=== PATIENT | male | born 1950 | race Caucasian/White ===

== ENCOUNTER → 2018-09-29 | Outpatient (CLI) | payer MEDICARE ==
[2018-09-29 12:10] LABS: HCT 45.3 % (39.0-53.0); HGB 13.9 gm/dL (13.0-17.5); Hypochromasia Marked; MCHC 30.7 g/dL (31.0-37.0); MCV 84.6 fL (80.0-100.0); Mean Platelet Volume 7.4; Platelet Count 281 k/uL (150-450); RBC 5.35 m/uL (4.30-5.90); RDW 15.8 % (11.5-15.5); WBC 9.5 k/uL (3.8-10.6)
[2018-09-29 12:26] LABS: Potassium 3.8 mmol/L (3.5-5.1)
== END ==
LOC: LABPAT 10:59
PROVIDERS: ATTEND Internal Medicine Interventional Cardiology
DX: Z01.812 Encounter for preprocedural laboratory examination (principal); I48.1 Persistent atrial fibrillation; I10 Essential (primary) hypertension; E78.2 Mixed hyperlipidemia; R94.39 Abnormal result of other cardiovascular function study
CPT/HCPCS: 80051; 82565; 84520; 85027

== ENCOUNTER 2018-10-09 09:00 | Day surgery (SDC) | payer BC, MEDICARE ==
[2018-09-28 16:09] VITALS: BMI 35.2
[~2018-10-09 09:00] MED LIST: ALPRAZolam 0.25 MG TAB PO PRN; ALPRAZolam 0.5 MG TAB PO PRN; ASPIRIN 325 MG TAB PO STA; ATORVASTATIN 80 MG TAB PO STA; NITROGLYCERIN SL TABS 0.4 MG TAB SUBLINGUAL PRN; SODIUM CHLORIDE 0.9% 1,000 ML in EMPTY BAG 1 BAG IV ONE
[2018-10-09 09:58] VITALS: TEMP 97.5
[2018-10-09] MEDS ORDERED: SODIUM CHLORIDE 0.9% 1,000 ML IV ONE (10:00)
[2018-10-09] MEDS ORDERED: MIDAZOLAM 2 MG/2 ML VIAL IVP ONE ×2 (10:56)
[2018-10-09] MEDS ORDERED: LIDOCAINE 1% INJ 10MG/ML (20 ML MDV) SQ ONE (10:59)
[2018-10-09] MEDS ORDERED: VERAPAMIL SYRINGE (5 MG/10 ML) IV ONE (11:00)
[2018-10-09] MEDS ORDERED: HEPARIN SODIUM 1,000 UN/ML (10ML VL) IV ONE (11:04)
[2018-10-09] MEDS ORDERED: IOPAMIDOL-370 100ML BTL INJ ONE ×2 (11:22→11:33)
[2018-10-09 14:14] VITALS: PULSE 76
--- NOTE | 2018-10-09 16:43 | CC ---
CARDIAC CATHETERIZATION REPORT DATE OF SERVICE: 10/09/2018. PROCEDURE: Left heart catheterization, coronary angiography. PERFORMED BY: Dr. Mateus Quezada. Moderate conscious sedation time was 42 minutes. CLINICAL INFORMATION: Mr. Blaze Wright is a 68-year-old gentleman with a known history of hypertension, chronic persistent atrial fibrillation and hypertension who also has underlying COPD. He has been on rate control and anticoagulation with a preserved LV function. Because of symptoms of exertional chest tightness and pressure, he had a stress test which revealed inferolateral reversible defect and was therefore advised coronary angiography. Risks, benefits, options, rationale were explained. PROCEDURE NOTE: Under local anesthesia and strict aseptic precautions, a 6-Nepali introducer was placed in the right radial artery. Using a 3.5 left and a 4.0 right Ari catheter, I performed coronary angiography, and a pigtail catheter was used to check LV pressures. LV gram was not performed. The patient received 3000 units of heparin. The sheath was taken out and TR band applied as per protocol with good saturation in the fingers of the right hand. CARDIAC CATHETERIZATION FINDINGS: The left ventricular end-diastolic pressure was about 15 mmHg without any gradient across the aortic valve. CORONARY ANGIOGRAPHY FINDINGS: RIGHT CORONARY ARTERY: Technically a nondominant vessel, heavily calcified in the proximal and middle one third, has tortuous areas of disease of anywhere from 40% to 45% in the proximal and distal portion. It gives off really a PDA branch, and not much of a PLV branch is noted. This is a nondominant RCA, but it is heavily calcified, has multiple areas of 40% to 45% narrowing, including a PDA branch or the distal portion of the RCA which then bifurcates into 2 branches, has an eccentric about 45% narrowing. LEFT MAIN CORONARY ARTERY: This is a long disease-free vessel that has mild distal narrowing of about maybe 20%. Ostium and mid portion of left main are free of significant disease and it bifurcates into LAD and circumflex. Left main itself has no significant lesion. LEFT ANTERIOR DESCENDING CORONARY ARTERY: Fair-caliber vessel, gives off a diagonal branch proximally, smaller septal branches, moderate to heavy calcification in the proximal one third. Other than that, no critical stenosis. He has about a 30% to 40% narrowing in the LAD and diagonal, but the proximal one third of LAD is heavily calcified. LEFT POSTERIOR CIRCUMFLEX CORONARY ARTERY: Technically a dominant vessel that gives off a very proximal high obtuse marginal and has minor irregularities. Then it runs in the AV groove and gives off 2 distal posterolateral and PDA branches. The PDA branch of circumflex has an eccentric lesion of about 90% located in the mid portion after it bifurcates. Very tortuous, moderate to heavily calcified vessel in the distal portion. The circumflex is also a technically difficult vessel to perform intervention on. Caliber of the vessel appears to be smaller distally, but at least a 2.25 caliber. Circumflex therefore has a critical 90% lesion in the distal PDA branch after bifurcation of a dominant circumflex. LEFT VENTRICULOGRAM: This was not performed. FINAL IMPRESSION: This patient has heavily calcified vessels, a left-dominant system with a PDA branch of circumflex having a 90% lesion. RCA has a 40% to 45% lesion in multiple areas, including the distal portion. LAD has no critical lesion. All vessels are heavily calcified. LV gram was not performed. There was no gradient across the aortic valve. Filling pressures were mildly elevated. RECOMMENDATION: I am recommending elective PCI of PDA branch of circumflex to be performed from right femoral approach. Discussed the findings with the patient, his and children. Patient will be discharged later on today. MMODL / IJN: [id number] /
[2018-10-09 16:46] VITALS: BP 129/78; RESP 18
== END 2018-10-09 16:35 | disposition home or self-care (01) ==
LOC: CATHCVL 09:00
PROVIDERS: ATTEND Internal Medicine Interventional Cardiology
DX: I25.110 Atherosclerotic heart disease of native coronary artery with unstable angina pectoris (principal); R94.39 Abnormal result of other cardiovascular function study; I48.2 Chronic atrial fibrillation; I48.1 Persistent atrial fibrillation; I10 Essential (primary) hypertension; E78.00 Pure hypercholesterolemia, unspecified; J44.9 Chronic obstructive pulmonary disease, unspecified; J45.40 Moderate persistent asthma, uncomplicated; Z79.01 Long term (current) use of anticoagulants; Z79.899 Other long term (current) drug therapy; Z72.0 Tobacco use
CPT/HCPCS: 93458; C1769 ×2; C1894; J2250; J2001; J1644; Q9967

== ENCOUNTER → 2018-10-24 | Outpatient (CLI) | payer MEDICARE ==
[2018-10-24 11:54] LABS: HCT 43.1 % (39.0-53.0); HGB 12.6 gm/dL (13.0-17.5); Hypochromasia Marked; MCH 24.6 pg (25.0-35.0); MCHC 29.3 g/dL (31.0-37.0); Mean Platelet Volume 6.1; Platelet Count 286 k/uL (150-450); RBC 5.13 m/uL (4.30-5.90); RDW 15.9 % (11.5-15.5); WBC 10.4 k/uL (3.8-10.6)
== END | disposition home or self-care (01) ==
LOC: LABPAT 10:24
PROVIDERS: ATTEND Internal Medicine Interventional Cardiology
DX: Z01.812 Encounter for preprocedural laboratory examination (principal); I10 Essential (primary) hypertension; I25.10 Atherosclerotic heart disease of native coronary artery without angina pectoris
CPT/HCPCS: 36415; 80051; 82565; 84520; 85027

== ENCOUNTER 2018-11-03 05:55 | Day surgery (SDC) | payer MEDICARE ==
[2018-11-03] MEDS ORDERED: ALPRAZolam 0.25 MG TAB PO PRN (06:10)
[2018-11-03] MEDS ORDERED: ATORVASTATIN 80 MG TAB PO STA (06:10)
[2018-11-03] MEDS ORDERED: NITROGLYCERIN SL TABS 0.4 MG TAB SUBLINGUAL PRN ×2 (06:10→08:34)
[2018-11-03] MEDS ORDERED: SODIUM CHLORIDE 0.9% 1,000 ML in EMPTY BAG 1 BAG IV ONE (06:10)
[2018-11-03] MEDS ORDERED: ASPIRIN 325 MG TAB PO STA (06:10)
[2018-11-03] MEDS ORDERED: ALPRAZolam 0.5 MG TAB PO PRN (06:10)
[2018-11-03 07:03] LABS: Anisocytosis Slight; Basophils % (A) 0 %; Eosinophils # (A) 0.6 k/uL (0-0.7); Eosinophils % (A) 4 %; HCT 40.4 % (39.0-53.0); HGB 12.5 gm/dL (13.0-17.5); Hypochromasia Moderate; Lymphocytes % (A) 6 %; MCH 24.9 pg (25.0-35.0); MCHC 30.8 g/dL (31.0-37.0); MCV 80.7 fL (80.0-100.0); Mean Platelet Volume 7.1; Monocytes # (A) 0.7 k/uL (0-1.0); Monocytes % (A) 5 %; Neutrophils # (A) 13.4 k/uL (1.3-7.7); Neutrophils % (A) 84 %; Platelet Count 257 k/uL (150-450); RBC 5.01 m/uL (4.30-5.90); RDW 16.6 % (11.5-15.5); WBC 15.9 k/uL (3.8-10.6)
[2018-11-03 07:10] LABS: Anion Gap 8 mmol/L; Blood Urea Nitrogen 16 mg/dL (9-20); Calcium 9.8 mg/dL (8.4-10.2); Carbon Dioxide 28 mmol/L (22-30); Chloride 103 mmol/L (98-107); Glucose 121 mg/dL (74-99); Sodium 139 mmol/L (137-145)
[2018-11-03] MEDS ORDERED: LIDOCAINE 1% INJ 10MG/ML (20 ML MDV) ONE (07:10)
[2018-11-03] MEDS: MIDAZOLAM 2 MG/2 ML VIAL IV ONE ×2 (07:32→07:35)
[2018-11-03] MEDS ORDERED: LIDOCAINE 1% INJ 10MG/ML (20 ML MDV) SQ ONE (07:34)
[2018-11-03] MEDS ORDERED: BIVALIRUDIN BOLUS 250 MG/50 ML IV ONE (07:45)
[2018-11-03] MEDS ORDERED: BIVALIRUDIN 250 MG in SODIUM CHLORIDE 0.9% 50 ML IV ONE (07:46)
[2018-11-03] MEDS: NITROGLYCERIN 1000MCG/10ML SYRINGE INTRACORON ONE ×2 (08:13→08:18)
[2018-11-03] MEDS ORDERED: IOPAMIDOL-370 125ML BTL INJ ONE ×2 (08:17→08:37)
[2018-11-03] MEDS ORDERED: CLOPIDOGREL 75 MG TAB ONE (08:20)
[2018-11-03] MEDS ORDERED: CLOPIDOGREL 75 MG TAB PO ONE (08:27)
[2018-11-03] MEDS ORDERED: RX INFO: IV CONTRAST WAS GIVEN 1 EACH MISC MISCELLANE PRN (08:34)
[2018-11-03] MEDS ORDERED: MAG HYDROX/AL HYDROX/SIMETH 30 ML CUP PO PRN (08:34)
[2018-11-03] MEDS ORDERED: ZOLPIDEM 5 MG TAB PO PRN (08:34)
[2018-11-03] MEDS ORDERED: ATROPINE SULFATE 0.1 MG/ML 10ML SYRINGE IV PRN (08:34)
--- NOTE | 2018-11-03 09:51 | PTCA ---
PERCUTANEOUSTRANS CORORONARY ANGIOGRAPHY DATE OF SERVICE: 11/03/2018 PROCEDURE: PTCA and stenting of second obtuse marginal branch of circumflex which is a very distal calcified lesion. PERFORMED BY: Dr. Mateus Quezada Moderate conscious sedation time was 50 minutes. The patient was administered a combination of Versed and fentanyl. His oxygen saturation, hemodynamics, and EKG were monitored closely. CLINICAL INFORMATION: Mr. Blaze Wright is a 68-year-old gentleman with chronic atrial fibrillation, hypertension, hyperlipidemia, and calcified coronary arteries. He underwent a cardiac cath a week or 2 ago which revealed that he had a moderate calcified disease in the proximal RCA with mild disease in the mid distal RCA which was heavily calcified, dominant vessel. Circumflex was a codominant vessel and the second obtuse marginal had a heavily calcified tortuous eccentric 95% lesion. LAD had moderate noncritical disease. He was advised intervention of the circumflex marginal after due discussion regarding risks, benefits, and options. The complex nature as well as the calcified status of the vessel were explained to the patient and family. PROCEDURE NOTE: Under local anesthesia and strict aseptic precautions, a 6-Swiss introducer was placed in the right femoral artery. I used a Voda 3.5 guide catheter to cannulate the left coronary artery. I used a run-through wire to cross the lesion. Wire was kept distally. I tried to advance a 2.25 caliber NC Trek balloon, but I had difficulty because of the calcification and tortuosity. I then used a 1.5 caliber 12 mm Mini Trek balloon with this I pre-dilated the lesion. After 2 inflations in the lesion and proximal to it, I advanced a 8 mm long 2.0 caliber Attila stent and deployed and deployed this at the site of the lesion at 15 atmospheres. A good angiographic result was achieved, but just proximal to it there was another area of narrowing. This was addressed with a 12 mm attila stent of 2.0 caliber and this was inflated up to 15 atmospheres. Patient did not have chest discomfort or EKG changes. Excellent angiographic result was achieved with remarkably improvement in angiographic appearance and flow without complication. The sheath was sutured. He received Angiomax bolus and infusion. Patient was on Xarelto for chronic atrial fibrillation. He received 600 mg of Plavix. I will place him on Xarelto 10 mg daily, Plavix 75 mg daily and aspirin 81 mg daily, and he will be discharged tomorrow if he remains stable. Results were discussed with the patient and family. I expect the patient to be discharged tomorrow if he remains stable. VIKTORIYA / MERCEDEZ: [id number] /
[2018-11-03] MEDS ORDERED: HYDROmorphone 0.5 MG/0.5 ML SYRINGE IVP STA (14:00)
[2018-11-03] MEDS: SODIUM CHLORIDE 0.9% 1,000 ML IV SCH ×2 (14:20→21:22)
[2018-11-03 18:39] VITALS: BMI 32.0
[2018-11-03] MEDS: LOSARTAN-HCTZ 50-12.5 MG 1 EACH TAB PO SCH (18:42)
[2018-11-03] MEDS: METOPROLOL TARTRATE 50 MG TAB PO SCH (18:42)
[2018-11-03] MEDS: IPRATROPIUM-ALBUTEROL 3 ML NEB INHALATION SCH ×4 (18:42→21:20)
[2018-11-03] MEDS ORDERED: MORPHINE SULFATE 2 MG/ML SYRINGE IVP PRN (19:14)
[2018-11-03] MEDS: BUDESONIDE 0.5 MG/2 ML NEBU INHALATION SCH ×2 (19:58→21:20)
[2018-11-03] MEDS ORDERED: RIVAROXABAN 10 MG TAB PO SCH (21:00)
[2018-11-03] MEDS ORDERED: IPRATROPIUM-ALBUTEROL 3 ML NEB INHALATION PRN (21:38)
[2018-11-03 22:49] VITALS: RESP 18; TEMP 98.4
[2018-11-04] MEDS: CLOPIDOGREL 75 MG TAB PO SCH ×2 (06:40→09:56)
[2018-11-04] MEDS: IPRATROPIUM-ALBUTEROL 3 ML NEB INHALATION SCH (07:57)
[2018-11-04] MEDS: BUDESONIDE 0.5 MG/2 ML NEBU INHALATION SCH (07:57)
[2018-11-04 08:27] LABS: Anisocytosis Slight; Basophils % (A) 0 %; Eosinophils # (A) 0.2 k/uL (0-0.7); Eosinophils % (A) 2 %; HCT 41.2 % (39.0-53.0); HGB 12.4 gm/dL (13.0-17.5); Hypochromasia Marked; Lymphocytes # (A) 0.8 k/uL (1.0-4.8); Lymphocytes % (A) 8 %; MCH 24.8 pg (25.0-35.0); MCHC 30.2 g/dL (31.0-37.0); Mean Platelet Volume 6.9; Monocytes # (A) 0.5 k/uL (0-1.0); Monocytes % (A) 5 %; Neutrophils # (A) 8.1 k/uL (1.3-7.7); Neutrophils % (A) 83 %; Platelet Count 247 k/uL (150-450); RBC 5.03 m/uL (4.30-5.90); RDW 16.6 % (11.5-15.5); WBC 9.8 k/uL (3.8-10.6)
[2018-11-04 08:32] LABS: Calcium 9.4 mg/dL (8.4-10.2)
[2018-11-04] MEDS ORDERED: MONTELUKAST 10 MG TAB PO SCH (09:00)
[2018-11-04] MEDS ORDERED: ATORVASTATIN 80 MG TAB PO SCH (09:00)
[2018-11-04] MEDS ORDERED: ASPIRIN 81 MG PO SCH (09:00)
[2018-11-04] MEDS ORDERED: hydrALAZINE HCL 50 MG TAB PO SCH (09:00)
[2018-11-04] MEDS: LOSARTAN-HCTZ 50-12.5 MG 1 EACH TAB PO SCH (09:53)
[2018-11-04] MEDS: METOPROLOL TARTRATE 50 MG TAB PO SCH (09:56)
[2018-11-04 10:01] VITALS: BP 126/79; PULSE 89
--- NOTE | 2018-11-04 12:37 | PN ---
PROGRESS NOTE Mr. Wright is a 68-year-old male who was admitted yesterday, underwent coronary angiography and stenting by Dr. Mateus Quezada of his obtuse marginal branch left circumflex. He is doing well this morning. He has a history of chronic persistent atrial fibrillation. He is ambulating without difficulty. Denying any chest pain. No dizziness. No palpitation. He denies any nausea. He continues to be at this time on aspirin 81 mg daily, Lipitor 80 mg daily, Plavix 75 mg daily, hydralazine 50 mg daily, losartan HCT 100-25 mg daily, metoprolol tartrate 100 mg daily, Singulair 10 mg daily, Xarelto 10 mg daily. PHYSICAL EXAMINATION: Blood pressure 126/70 with a heart rate in the 80s. LUNGS: Clear heart, irregularly irregular, S1, S2. No S3. No rub. ABDOMEN: Soft, nontender. Right groin no hematoma. LAB DATA: Revealed BUN and creatinine 17 and 1.02. IMPRESSION: 1. Status post stenting of the left circumflex. 2. Hypertension. 3. Hyperlipidemia. 4. Atrial fibrillation. RECOMMENDATION: Patient should be able to be discharged home today and follow as an outpatient with Dr. Mateus Quezada. MMODL / IJN: [id number] /
== END 2018-11-04 12:17 | disposition home or self-care (01) ==
LOC: CATHCVL 05:55 → 3SCARD 08:22 → CATHCVL 11-04 12:17
PROVIDERS: ATTEND Internal Medicine Interventional Cardiology
DX: I25.10 Atherosclerotic heart disease of native coronary artery without angina pectoris (principal); I48.2 Chronic atrial fibrillation; I10 Essential (primary) hypertension; J44.9 Chronic obstructive pulmonary disease, unspecified; J45.40 Moderate persistent asthma, uncomplicated; E78.00 Pure hypercholesterolemia, unspecified; E78.5 Hyperlipidemia, unspecified; Z72.0 Tobacco use; Z79.01 Long term (current) use of anticoagulants; Z79.899 Other long term (current) drug therapy; Z79.82 Long term (current) use of aspirin; Z79.02 Long term (current) use of antithrombotics/antiplatelets
CPT/HCPCS: 94640 ×3; 80048 ×2; 85025 ×2; C9600; C1887; C1725 ×2; C1769 ×4; C1894; C1874; J2250; J2001; J2270; J0583; J1170; Q9967

== ENCOUNTER 2019-12-04 15:05 | Inpatient (IN) | payer MEDICARE ==
[2019-12-04] MEDS ORDERED: ONDANSETRON 4 MG/2 ML VIAL IVP PRN (16:56)
[2019-12-04] MEDS ORDERED: NALOXONE 0.4 MG/ML 1 ML VIAL IV PRN (16:56)
--- NOTE | 2019-12-04 17:00 | P.HPADDEND ---
H&P Addendum H&P Addendum Date: 12/04/19 Please refer to H&P dictated through separate bariatric account 1 hour ago.
[2019-12-04 18:09] LABS: Anisocytosis Slight; Basophils % (A) 0 %; Eosinophils % (A) 0 %; HCT 28.5 % (39.0-53.0); HGB 7.3 gm/dL (13.0-17.5); Hypochromasia Marked; Lymphocytes # (A) 0.8 k/uL (1.0-4.8); Lymphocytes % (A) 7 %; MCHC 25.6 g/dL (31.0-37.0); MCV 66.3 fL (80.0-100.0); Mean Platelet Volume 7.2; Microcytosis Marked; Monocytes # (A) 0.3 k/uL (0-1.0); Monocytes % (A) 3 %; Neutrophils # (A) 10.2 k/uL (1.3-7.7); Neutrophils % (A) 89 %; Platelet Count 343 k/uL (150-450); Poikilocytosis Slight; WBC 11.4 k/uL (3.8-10.6)
[2019-12-04] MEDS: HYDROmorphone 0.5 MG/0.5 ML SYRINGE IVP PRN (18:41)
[2019-12-04 18:42] LABS: ALT 14 U/L (4-49); AST 28 U/L (17-59); African American GFR (CKD) >90 (>60 ml/min/1.73 sqM); Albumin 3.2 g/dL (3.5-5.0); Alkaline Phosphatase 78 U/L (38-126); Anion Gap 10 mmol/L; Blood Urea Nitrogen 18 mg/dL (9-20); Calcium 8.7 mg/dL (8.4-10.2); Carbon Dioxide 29 mmol/L (22-30); Chloride 95 mmol/L (98-107); Glucose 99 mg/dL (74-99); Non-African American GFR(CKD) 78 (>60 ml/min/1.73 sqM); Potassium 3.2 mmol/L (3.5-5.1); Sodium 134 mmol/L (137-145); Total Bilirubin 1.2 mg/dL (0.2-1.3); Total Protein 6.3 g/dL (6.3-8.2)
[2019-12-04] MEDS: D5-0.45% NACL WITH KCL 20MEQ/L 1,000 ML IV SCH (18:43)
--- NOTE | 2019-12-04 19:02 | XR ---
EXAMINATION TYPE: XR chest 2V DATE OF EXAM: 12/04/2019 COMPARISON: 03/12/2013 HISTORY: Chest congestion TECHNIQUE: FINDINGS: There is a 4 cm area of pleural thickening and infiltrate at the left lung apex. There is s ome patchy 5 cm area of infiltrate lateral left lung base. There is some diffuse infiltrate right low er lobe. There is hiatal hernia. There is no heart failure. There is slight blunting right costophren ic angle. Heart appears shifted slightly to the right side. There is some 3.5 cm poorly marginated in filtrate lateral to the right pulmonary hilum. IMPRESSION: Multiple areas of pulmonary infiltrate. Left upper lobe density at the apex unchanged and consistent with pleural and pulmonary scarring. The other infiltrates appear new compared to old exa m and consistent with inflammatory disease. There is also some atelectasis and volume loss left lower lobe with slight shift of the heart to the right side. No heart failure.
[2019-12-05] MEDS: D5-0.45% NACL WITH KCL 20MEQ/L 1,000 ML IV SCH ×2 (01:33→09:09)
[2019-12-05] MEDS: HEPARIN SODIUM,PORCINE 5,000 UNIT/ML 1 ML VIAL SQ SCH ×4 (01:33→23:38)
[2019-12-05 07:58] LABS: Magnesium 1.9 mg/dL (1.6-2.3); Phosphorus 3.4 mg/dL (2.5-4.5)
[2019-12-05] MEDS: ALBUTEROL NEBULIZED 2.5 MG/3 ML INHALATION SCH ×2 (08:20→08:43)
[2019-12-05] MEDS ORDERED: IPRATROPIUM-ALBUTEROL 3 ML NEB INHALATION PRN (08:36)
[2019-12-05] MEDS: BUDESONIDE 0.5 MG/2 ML NEBU INHALATION SCH ×2 (08:43→20:25)
--- NOTE | 2019-12-05 08:44 | FL ---
EXAMINATION TYPE: FL UGI w esophagus DATE OF EXAM: 12/05/2019 COMPARISON: NONE HISTORY: Dysphagia. LAP-BAND placement in 2007 with recent nausea and vomiting as well as 60 pound we ight loss in 3 months. TECHNIQUE: A single contrast esophagram and UGI study is performed. 1.09 and its of fluoroscopy time was utilized with 17 fluoroscopic images saved. 1 ounce of thin barium was utilized. FINDINGS: Phi angle is calculated at 32 degrees and is within normal limits. The esophagus shows markedly delayed emptying into the stomach with only a very trace amount (less th an 1 cc) extending through the gastric lap band after prolonged imaging time (greater than 5 minutes) . Exam was terminated. IMPRESSION: Near complete obstruction at the level of the gastric lap band with less than 1 cc progr essing through the lap and after prolonged imaging time. Findings were dedicated with the ordering lynne woo at approximately 837 on 12/05/2019.
[2019-12-05] MEDS: PANTOPRAZOLE 40 MG/10 ML VIAL IV SCH (09:08)
[2019-12-05] MEDS: MONTELUKAST 10 MG TAB PO SCH ×2 (09:11→10:25)
[2019-12-05] MEDS: METOPROLOL TARTRATE 50 MG TAB PO SCH ×2 (09:11→10:25)
[2019-12-05] MEDS: ATORVASTATIN 80 MG TAB PO SCH ×2 (09:12→09:32)
[2019-12-05] MEDS: LOSARTAN 50 MG TAB PO SCH ×2 (09:12→10:25)
[2019-12-05] MEDS: HYDROCHLOROTHIAZIDE 12.5 MG CAP PO SCH ×2 (09:12→10:25)
[2019-12-05] MEDS: hydrALAZINE HCL 50 MG TAB PO SCH ×2 (09:12→10:24)
[2019-12-05 09:13] LABS: Anisocytosis Slight; Basophils % (A) 0 %; Eosinophils # (A) 0.2 k/uL (0-0.7); Eosinophils % (A) 2 %; HCT 26.8 % (39.0-53.0); HGB 7.2 gm/dL (13.0-17.5); Hypochromasia Marked; Lymphocytes # (A) 0.8 k/uL (1.0-4.8); Lymphocytes % (A) 9 %; MCH 17.5 pg (25.0-35.0); MCHC 26.8 g/dL (31.0-37.0); MCV 65.5 fL (80.0-100.0); Mean Platelet Volume 7.5; Microcytosis Marked; Monocytes # (A) 0.6 k/uL (0-1.0); Monocytes % (A) 6 %; Neutrophils # (A) 7.6 k/uL (1.3-7.7); Neutrophils % (A) 82 %; Platelet Count 286 k/uL (150-450); Poikilocytosis Slight; RBC 4.08 m/uL (4.30-5.90); RDW 17.7 % (11.5-15.5); WBC 9.3 k/uL (3.8-10.6)
[2019-12-05 09:18] LABS: ALT 13 U/L (4-49); AST 20 U/L (17-59); African American GFR (CKD) >90 (>60 ml/min/1.73 sqM); Albumin 2.8 g/dL (3.5-5.0); Alkaline Phosphatase 69 U/L (38-126); Anion Gap 11 mmol/L; Blood Urea Nitrogen 18 mg/dL (9-20); Calcium 8.3 mg/dL (8.4-10.2); Carbon Dioxide 30 mmol/L (22-30); Chloride 97 mmol/L (98-107); Glucose 113 mg/dL (74-99); Non-African American GFR(CKD) 83 (>60 ml/min/1.73 sqM); Potassium 3.7 mmol/L (3.5-5.1); Sodium 138 mmol/L (137-145); Total Protein 5.8 g/dL (6.3-8.2)
--- NOTE | 2019-12-05 10:22 | P.PN ---
<eYn Jerry - Last Filed: 12/05/19 10:16> Subjective Progress Note Date: 12/05/19 CHIEF COMPLAINT: Dysphagia HISTORY OF PRESENT ILLNESS: Patient examined this morning at the bedside. He underwent upper GI revealing near complete obstruction at the level of the gastric lap band with less than 1 mL progressing to the lab and after prolonged imaging time. He denies abdominal pain. Currently NPO. PHYSICAL EXAM: VITAL SIGNS: Reviewed. GENERAL: Well-developed in no acute distress. HEENT: No sclera icterus. Extraocular movements grossly intact. Moist buccal mucosa. Head is atraumatic, normocephalic. ABDOMEN: Soft. Nondistended. Nontender. NEUROLOGIC: Alert and oriented. Cranial nerves II through XII grossly intact. ASSESSMENT: 1. Dysphagia 2. Gastric outlet obstruction secondary to lap band PLAN: -NPO. Continue IV fluids -Continue to hold Xarelto -Pulmonary and internal medicine consulted for clearance -Patient will require eventual removal of lap band when cleared by consulting providers Nurse practitioner note has been reviewed by physician. Signing provider agrees with the documented findings, assessment, and plan of care. Objective - Vital Signs Vital signs: Vital Signs Temp 97.6 F 12/05/19 07:00 Pulse 96 12/05/19 09:00 Resp 20 12/05/19 07:57 BP 126/80 12/05/19 07:00 Pulse Ox 92 L 12/05/19 07:00 Intake & Output 12/04/19 12/05/19 12/05/19 18:59 06:59 18:59 Weight 80.1 kg - Labs CBC & Chem 7: 12/05/19 06:29 12/05/19 06:29 Labs: Abnormal Lab Results - Last 24 Hours (Table) 12/04/19 12/04/19 12/05/19 Range/Units 17:21 17:21 06:29 WBC 11.4 H (3.8-10.6) k/uL RBC 4.08 L (4.30-5.90) m/uL Hgb 7.3 L 7.2 L (13.0-17.5) gm/dL Hct 28.5 L 26.8 L (39.0-53.0) % MCV 66.3 L 65.5 L (80.0-100.0) fL MCH 17.0 L 17.5 L (25.0-35.0) pg MCHC 25.6 L 26.8 L (31.0-37.0) g/dL RDW 18.0 H 17.7 H (11.5-15.5) % Neutrophils # 10.2 H (1.3-7.7) k/uL Lymphocytes # 0.8 L 0.8 L (1.0-4.8) k/uL Sodium 134 L (137-145) mmol/L Potassium 3.2 L (3.5-5.1) mmol/L Chloride 95 L (98-107) mmol/L Glucose (74-99) mg/dL Calcium (8.4-10.2) mg/dL Total Protein (6.3-8.2) g/dL Albumin 3.2 L (3.5-5.0) g/dL 12/05/19 Range/Units 06:29 WBC (3.8-10.6) k/uL RBC (4.30-5.90) m/uL Hgb (13.0-17.5) gm/dL Hct (39.0-53.0) % MCV (80.0-100.0) fL MCH (25.0-35.0) pg MCHC (31.0-37.0) g/dL RDW (11.5-15.5) % Neutrophils # (1.3-7.7) k/uL Lymphocytes # (1.0-4.8) k/uL Sodium (137-145) mmol/L Potassium (3.5-5.1) mmol/L Chloride 97 L (98-107) mmol/L Glucose 113 H (74-99) mg/dL Calcium 8.3 L (8.4-10.2) mg/dL Total Protein 5.8 L (6.3-8.2) g/dL Albumin 2.8 L (3.5-5.0) g/dL <Cristopher Ennis - Last Filed: 12/05/19 14:54> Subjective As above. Patient's upper GI showed near complete obstruction. Await final clearances from cardiology, pulmonary, and medicine for laparoscopic lap band removal. We'll tentatively schedule for Tuesday in the event that he is cleared. Objective - Vital Signs Vital signs: Vital Signs Temp 97.6 F 12/05/19 07:00 Pulse 84 12/05/19 12:18 Resp 20 12/05/19 07:57 BP 126/80 12/05/19 07:00 Pulse Ox 92 L 12/05/19 07:00 Intake & Output 12/04/19 12/05/19 12/05/19 18:59 06:59 18:59 Weight 80.1 kg 80.1 kg Other: # Voids 1 - Labs CBC & Chem 7: 12/05/19 06:29 12/05/19 06:29 Labs: Abnormal Lab Results - Last 24 Hours (Table) 12/04/19 12/04/19 12/05/19 Range/Units 17:21 17:21 06:29 WBC 11.4 H (3.8-10.6) k/uL RBC 4.08 L (4.30-5.90) m/uL Hgb 7.3 L 7.2 L (13.0-17.5) gm/dL Hct 28.5 L 26.8 L (39.0-53.0) % MCV 66.3 L 65.5 L (80.0-100.0) fL MCH 17.0 L 17.5 L (25.0-35.0) pg MCHC 25.6 L 26.8 L (31.0-37.0) g/dL RDW 18.0 H 17.7 H (11.5-15.5) % Neutrophils # 10.2 H (1.3-7.7) k/uL Lymphocytes # 0.8 L 0.8 L (1.0-4.8) k/uL Sodium 134 L (137-145) mmol/L Potassium 3.2 L (3.5-5.1) mmol/L Chloride 95 L (98-107) mmol/L Glucose (74-99) mg/dL Calcium (8.4-10.2) mg/dL Total Protein (6.3-8.2) g/dL Albumin 3.2 L (3.5-5.0) g/dL 12/05/19 Range/Units 06:29 WBC (3.8-10.6) k/uL RBC (4.30-5.90) m/uL Hgb (13.0-17.5) gm/dL Hct (39.0-53.0) % MCV (80.0-100.0) fL MCH (25.0-35.0) pg MCHC (31.0-37.0) g/dL RDW (11.5-15.5) % Neutrophils # (1.3-7.7) k/uL Lymphocytes # (1.0-4.8) k/uL Sodium (137-145) mmol/L Potassium (3.5-5.1) mmol/L Chloride 97 L (98-107) mmol/L Glucose 113 H (74-99) mg/dL Calcium 8.3 L (8.4-10.2) mg/dL Total Protein 5.8 L (6.3-8.2) g/dL Albumin 2.8 L (3.5-5.0) g/dL
[2019-12-05] MEDS: HYDROmorphone 0.5 MG/0.5 ML SYRINGE IVP PRN ×4 (10:33→20:15)
--- NOTE | 2019-12-05 11:10 | P.CONS ---
History of Present Illness - Reason for Consult Consult date: 12/05/19 Medical clearance Requesting physician: Cristopher Ennis - History of Present Illness This is a 69-year-old male patient of Dr. Darden. Patient presented with complaints of gastric outlet obstruction secondary to lap band. Patient has been admitted under surgical services for eventual removal of left lap band.patient reports that he had lap band procedure in 2006 but has had increased symptoms of nausea and vomiting over the past few months. Additional medical history includes atrial fibrillation which she is maintained on xarelto, COPD and coronary artery disease with cardiac stents 13 months ago. Chest x-ray performed showing multiple areas of pulmonary infiltrate left upper lobe density at the apex unchanged and consistent with pleural and pulmonary scarring the other infiltrate new Compared to old exam consistent with inflammatory disease there are also some atelectasis and volume loss left lower lobe with slight shift of the heart to the right side. No heart failure. Patient will be started on IV antibiotics. Sputum culture ordered. Repeat chest x-ray ordered. Pulmonary service is consulted. We'll also consult cardiology services due to cardiac history for cardiac clearance. She is hemoglobin also low at 7.3. Patient denies any signs of bleeding or dark stools. Patient has been on Xarelto and Plavix which are currently both on hold. At this time are older stool for occult blood and iron studies. At this time patient is not medically cleared. Further workup is needed consults for pulmonary and cardiology to clear patient prior to any procedures. Review of Systems Please refer to HPI otherwise unremarkable Past Medical History Past Medical History: Atrial Fibrillation, Asthma, Chest Pain / Angina, COPD, GERD/Reflux, Hyperlipidemia, Hypertension History of Any Multi-Drug Resistant Organisms: None Reported Past Surgical History: Appendectomy, Heart Catheterization, Orthopedic Surgery Additional Past Surgical History / Comment(s): Cardioversion x 3, bilateral cataracts, surgery on bilateral hands, feet and ankles for fx when younger. Past Anesthesia/Blood Transfusion Reactions: No Reported Reaction Past Psychological History: No Psychological Hx Reported Smoking Status: Former smoker Past Alcohol Use History: Rare Additional Past Alcohol Use History / Comment(s): Quit smoking 9 yrs ago, started smoking as a teen, < 1 PPD. Past Drug Use History: None Reported - Past Family History Mother Family Medical History: No Reported History Medications and Allergies Home Medications Medication Instructions Recorded Confirmed Type RX: Budesonide [Pulmicort] 0.5 mg INHALATION RT-BID 09/28/18 12/04/19 History RX: Ipratropium-Albuterol Nebulize 3 ml INHALATION RT-QID 09/28/18 12/04/19 History [Duoneb 0.5 mg-3 mg/3 ml Soln] RX: Metoprolol Tartrate [Lopressor] 100 mg PO DAILY 09/28/18 12/04/19 History RX: Montelukast Sodium [Singulair] 10 mg PO DAILY 09/28/18 12/04/19 History RX: hydrALAZINE HCL [Apresoline] 50 mg PO DAILY 09/28/18 12/04/19 History RX: Atorvastatin [Lipitor] 80 mg PO DAILY #90 tab 11/04/18 12/04/19 Rx RX: Clopidogrel [Plavix] 75 mg PO DAILY #90 tab 11/04/18 12/04/19 Rx RX: Nitroglycerin Sl Tabs 0.4 mg SUBLINGUAL Q5M PRN #25 tab 11/04/18 12/04/19 Rx [Nitrostat] Losartan/Hydrochlorothiazide 1 tab PO DAILY 12/04/19 12/04/19 History [Hyzaar 100-12.5 Tablet] RX: Rivaroxaban [Xarelto] 10 mg PO DAILY 12/04/19 12/04/19 History Allergies Allergy/AdvReac Type Severity Reaction Status Date / Time No Known Allergies Allergy Verified 12/04/19 18:50 Physical Exam Vitals: Vital Signs Temp Pulse Pulse Resp BP Pulse Ox 12/05/19 09:00 96 12/05/19 08:46 106 H 12/05/19 07:57 20 12/05/19 07:00 97.6 F 85 20 126/80 92 L 12/05/19 03:30 97.9 F 77 18 117/70 91 L 12/04/19 20:08 97.9 F 77 16 117/78 12/04/19 18:58 16 12/04/19 17:09 97.5 F L 79 17 103/60 97 Intake and Output 12/04/19 12/05/19 12/05/19 22:59 06:59 14:59 Other: Weight 80.1 kg Head normocephalic Neck supple Lungs diminished bilaterally with rhonchi Heart irregular heart rate. Known atrial fibrillation Abdomen is soft nontender nondistended positive bowel sounds no hepatosplenomegaly Extremities no edema Neuro alert and orientated to 3 Results CBC & Chem 7: 12/05/19 06:29 12/05/19 06:29 Labs: Abnormal Lab Results - Last 24 Hours (Table) 12/04/19 12/04/19 12/05/19 Range/Units 17:21 17:21 06:29 WBC 11.4 H (3.8-10.6) k/uL RBC 4.08 L (4.30-5.90) m/uL Hgb 7.3 L 7.2 L (13.0-17.5) gm/dL Hct 28.5 L 26.8 L (39.0-53.0) % MCV 66.3 L 65.5 L (80.0-100.0) fL MCH 17.0 L 17.5 L (25.0-35.0) pg MCHC 25.6 L 26.8 L (31.0-37.0) g/dL RDW 18.0 H 17.7 H (11.5-15.5) % Neutrophils # 10.2 H (1.3-7.7) k/uL Lymphocytes # 0.8 L 0.8 L (1.0-4.8) k/uL Sodium 134 L (137-145) mmol/L Potassium 3.2 L (3.5-5.1) mmol/L Chloride 95 L (98-107) mmol/L Glucose (74-99) mg/dL Calcium (8.4-10.2) mg/dL Total Protein (6.3-8.2) g/dL Albumin 3.2 L (3.5-5.0) g/dL 12/05/19 Range/Units 06:29 WBC (3.8-10.6) k/uL RBC (4.30-5.90) m/uL Hgb (13.0-17.5) gm/dL Hct (39.0-53.0) % MCV (80.0-100.0) fL MCH (25.0-35.0) pg MCHC (31.0-37.0) g/dL RDW (11.5-15.5) % Neutrophils # (1.3-7.7) k/uL Lymphocytes # (1.0-4.8) k/uL Sodium (137-145) mmol/L Potassium (3.5-5.1) mmol/L Chloride 97 L (98-107) mmol/L Glucose 113 H (74-99) mg/dL Calcium 8.3 L (8.4-10.2) mg/dL Total Protein 5.8 L (6.3-8.2) g/dL Albumin 2.8 L (3.5-5.0) g/dL Assessment and Plan Assessment: 1. Gastric outlet obstruction secondary to lap band. Plans for eventual removal of lap band per surgical services 2. Increased sputum production and abnormal chest x-ray showing possible infiltrate. Patient started on Rocephin and azithromycin for possible pneumonia. Pulmonary service is consulted repeat chest x-ray ordered sputum culture ordered 3. Known coronary artery disease with recent stent 13 months ago. Patient is maintained on Zaroxolyn and Plavix. Both of which are on hold. Cardiology services consulted 4. Anemia. Hemoglobin low at 7.2. Anticoagulation currently on hold. Stool for occult blood ordered iron studies ordered 5. History of lap band procedure in 2006 6. History of atrial fibrillation. Zaroxolyn currently on hold cardiology services have been consulted 7. History of COPD. Pulmonary services have been consulted 8. History of essential hypertension 9. History of hyperlipidemia. Patient maintained on statin. DVT prophylaxis SCDs. GI prophylaxis Protonix At this time patient is not medically cleared further workup is needed Cardiology and pulmonary service is consulted Patient started on IV antibiotics for possible pneumonia Repeat chest x-ray and sputum culture ordered Stool for occult blood and iron studies ordered for anemia Thank you for this consultation we will continue to follow patient closely throughout stay Time with Patient: Greater than 30 (Greater than 60% of the total time spent in counseling and coordination of care. I performed an examination of the patient and discussed their management with the Nurse Practitioner. I have reviewed the Nurse Practitioner's notes and agree with the documented findings and plan of care)
--- NOTE | 2019-12-05 11:10 | P.CRDCN ---
History of Present Illness History of present illness: HISTORY OF PRESENTING ILLNESS This is a pleasant 69-year-old male past medical history significant for coronary artery disease s/p PCI OM, chronic persistent atrial fibrillation on exterminator helper anti-coagulation, COPD, hypertension, dyslipidemia and GERD. He follows in the office with Dr. Quezada. We have been asked to see in consultation for pre-operative evaluation. He also has a history of lap band procedure in 2006 with poor follow-up. Dr. Ennis saw him in bariatric clinic and sent him o domenica to admit for gastric outlet obstruction and dysphagia. He is currently nothing by mouth with plans for removal of lap band. He denies symptoms of chest pain, shortness of breath, dizziness or palpitations. EKG obtained on admission. We will request one be performed today. Chest x-ray reveals multiple areas of pulmonary infiltrate, left upper lobe density at the apex unchanged and consistent with pleural and pulmonary scarring, the other infiltrates appear new compared to old examined consistent with inflammatory disease. Some atelectasis and volume loss of the left lower lobe with a shift of the heart to the right side, no heart failure noted. Laboratory data reviewed, WBC on admission 11.4 repeat today 9.3, hemoglobin 7.2, platelets 286, sodium 138, potassium 3.7, creatinine 0.94, magnesium 1.9. Current daily cardiac medications include Xarelto 10 milligrams daily, Lopressor 100 mg daily, Hyzaar 100/12.5 mg daily, Plavix 75 mg daily and atorvastatin 80 mg daily. He underwent cardiac catheterization in October 2018 revealing RCA heavily calcified in the proximal and middle one third with a tortuous area of disease anywhere from 40-50%, left main has mild distal disease of approximately 20%, LAD has approximately 30-40% narrowing in heavily calcified, circumflex is with a 90% lesion. In November 2018 he underwent successful PCI of the PDA branch of the circumflex artery. Maintained on dual antiplatelet therapy. Last dose of Plavix was yesterday morning. REVIEW OF SYSTEMS At the time of my exam: CONSTITUTIONAL: Denies fever or chills. CARDIOVASCULAR: Denies chest pain, shortness of breath, orthopnea, PND or palpitations. RESPIRATORY: Denies cough. GASTROINTESTINAL: Denies abdominal pain, diarrhea, constipation, nausea or vomiting. MUSCULOSKELETAL: Denies myalgias. NEUROLOGIC: Denies numbness, tingling or weakness. ENDOCRINE: Denies fatigue, weight change, polydipsia or polyurina. GENITOURINARY: Denies burning, hematuria or urgency with micturation. HEMATOLOGIC: Denies history of anemia or bleeding. PHYSICAL EXAMINATION Blood pressure 126/80 heart rate 85 afebrile and maintaining oxygen saturation on nasal cannula. CONSTITUTIONAL: No apparent distress. HEENT: Head is normocephalic. Pupils are equal, round. Sclerae anicteric. Mucous membranes of the mouth are moist. No JVD. No carotid bruit. CHEST EXAMINATION: Bilateral wheezing, no rales or rhonchi. No chest wall tenderness is noted on palpation or with deep breathing. HEART EXAMINATION: Regular rate and rhythm. S1, S2 heard. No murmurs, gallops or rub. ABDOMEN: Soft, nontender. Positive bowel sounds. EXTREMITIES: 2+ peripheral pulses, trace bilateral lower extremity edema and no calf tenderness. NEUROLOGIC EXAMINATION: Patient is awake, alert and oriented x3. ASSESSMENT Gastric outlet obstruction and dysphagia History of lap band surgery 2006 Coronary artery disease status post PCI November 2018 maintained on dual antiplatelet therapy Hypertension Chronic persistent atrial fibrillation on long-term anticoagulation Dyslipidemia COPD PLAN Continue to hold Xarelto on Plavix. Xarelto should be held 48 hours prior to undergoing surgical intervention. Ideally Plavix should be held for 5 days prior to surgery. Clinically he is euvolemic with no symptoms of angina or ov ert heart failure. There is no actual contraindications to undergo surgical intervention. We have requested an EKG and echocardiogram, will be reviewed prior to surgery. Thank you kindly for this consultation. Nurse Practitioner note has been reviewed, I agree with a documented findings and plan of care. Patient was seen and examined. Past Medical History Past Medical History: Atrial Fibrillation, Asthma, Chest Pain / Angina, COPD, GERD/Reflux, Hyperlipidemia, Hypertension History of Any Multi-Drug Resistant Organisms: None Reported Past Surgical History: Appendectomy, Heart Catheterization, Orthopedic Surgery Additional Past Surgical History / Comment(s): Cardioversion x 3, bilateral cataracts, surgery on bilateral hands, feet and ankles for fx when younger. Past Anesthesia/Blood Transfusion Reactions: No Reported Reaction Past Psychological History: No Psychological Hx Reported Smoking Status: Former smoker Past Alcohol Use History: Rare Additional Past Alcohol Use History / Comment(s): Quit smoking 9 yrs ago, started smoking as a teen, < 1 PPD. Past Drug Use History: None Reported - Past Family History Mother Family Medical History: No Reported History Medications and Allergies Home Medications Medication Instructions Recorded Confirmed Type Budesonide [Pulmicort] 0.5 mg INHALATION RT-BID 09/28/18 12/04/19 History Ipratropium-Albuterol Nebulize 3 ml INHALATION RT-QID 09/28/18 12/04/19 History [Duoneb 0.5 mg-3 mg/3 ml Soln] Metoprolol Tartrate [Lopressor] 100 mg PO DAILY 09/28/18 12/04/19 History Montelukast Sodium [Singulair] 10 mg PO DAILY 09/28/18 12/04/19 History hydrALAZINE HCL [Apresoline] 50 mg PO DAILY 09/28/18 12/04/19 History Atorvastatin [Lipitor] 80 mg PO DAILY #90 tab 11/04/18 12/04/19 Rx Clopidogrel [Plavix] 75 mg PO DAILY #90 tab 11/04/18 12/04/19 Rx Nitroglycerin Sl Tabs [Nitrostat] 0.4 mg SUBLINGUAL Q5M PRN #25 tab 11/04/18 12/04/19 Rx Losartan/Hydrochlorothiazide 1 tab PO DAILY 12/04/19 12/04/19 History [Hyzaar 100-12.5 Tablet] Rivaroxaban [Xarelto] 10 mg PO DAILY 12/04/19 12/04/19 History Allergies Allergy/AdvReac Type Severity Reaction Status Date / Time No Known Allergies Allergy Verified 12/04/19 18:50 Physical Exam Vitals: Vital Signs Temp Pulse Pulse Resp BP Pulse Ox 12/05/19 09:00 96 12/05/19 08:46 106 H 12/05/19 07:57 20 12/05/19 07:00 97.6 F 85 20 126/80 92 L 12/05/19 03:30 97.9 F 77 18 117/70 91 L 12/04/19 20:08 97.9 F 77 16 117/78 12/04/19 18:58 16 12/04/19 17:09 97.5 F L 79 17 103/60 97 Intake and Output 12/04/19 12/05/19 12/05/19 22:59 06:59 14:59 Other: Weight 80.1 kg Results 12/05/19 06:29 12/05/19 06:29 Cardiac Enzymes 12/04/19 12/05/19 Range/Units 17:21 06:29 AST 28 20 (17-59) U/L CBC 12/04/19 12/05/19 Range/Units 17:21 06:29 WBC 11.4 H 9.3 (3.8-10.6) k/uL RBC 4.30 4.08 L (4.30-5.90) m/uL Hgb 7.3 L 7.2 L (13.0-17.5) gm/dL Hct 28.5 L 26.8 L (39.0-53.0) % Plt Count 343 286 (150-450) k/uL Comprehensive Metabolic Panel 12/04/19 12/05/19 Range/Units 17:21 06:29 Sodium 134 L 138 (137-145) mmol/L Potassium 3.2 L 3.7 (3.5-5.1) mmol/L Chloride 95 L 97 L (98-107) mmol/L Carbon Dioxide 29 30 (22-30) mmol/L BUN 18 18 (9-20) mg/dL Creatinine 0.99 0.94 (0.66-1.25) mg/dL Glucose 99 113 H (74-99) mg/dL Calcium 8.7 8.3 L (8.4-10.2) mg/dL AST 28 20 (17-59) U/L ALT 14 13 (4-49) U/L Alkaline Phosphatase 78 69 (38-126) U/L Total Protein 6.3 5.8 L (6.3-8.2) g/dL Albumin 3.2 L 2.8 L (3.5-5.0) g/dL Current Medications Generic Name Dose Route Start Last Admin Trade Name Freq PRN Reason Stop Dose Admin Albuterol/Ipratropium 3 ml 12/05/19 08:36 Duoneb 0.5 Mg-3 Mg/3 Ml Soln INHALATION RT-QID PRN Shortness Of Breath Albuterol/Ipratropium 3 ml 12/05/19 12:00 Duoneb 0.5 Mg-3 Mg/3 Ml Soln INHALATION RT-Q4H PATRICK Atorvastatin Calcium 80 mg 12/05/19 09:00 12/05/19 09:32 Lipitor PO Not Given DAILY PATRICK Budesonide 0.5 mg 12/05/19 20:00 12/05/19 08:43 Pulmicort INHALATION 0.5 mg RT-BID PATRICK Administration Heparin Sodium (Porcine) 5,000 unit 12/05/19 00:00 12/05/19 09:08 Heparin SQ 5,000 unit Q8HR PATRICK Administration Hydralazine HCl 50 mg 12/05/19 09:00 12/05/19 10:24 Apresoline PO Not Given DAILY [facility] Hydrochlorothiazide 12.5 mg 12/05/19 09:00 12/05/19 10:25 Hydrodiuril PO Not Given DAILY PATRICK Hydromorphone HCl 0.5 mg 12/04/19 16:56 12/05/19 10:33 Dilaudid IVP 0.5 mg Q3HR PRN Administration Moderate to Severe Pain Potassium Chloride/Dextrose/Sod Cl 1,000 mls @ 125 mls/hr 12/04/19 17:00 12/05/19 09:09 D5%-1/2ns-Kcl 20 Meq/L Iv Solution IV 125 mls/hr .Q8H PATRICK Administration Losartan Potassium 100 mg 12/05/19 09:00 12/05/19 10:25 Cozaar PO Not Given DAILY [facility] Metoprolol Tartrate 100 mg 12/05/19 09:00 12/05/19 10:25 Lopressor PO Not Given DAILY [facility] Montelukast Sodium 10 mg 12/05/19 09:00 12/05/19 10:25 Singulair PO Not Given DAILY [facility] Naloxone HCl 0.2 mg 12/04/19 16:56 Narcan IV Q2M PRN Opioid Reversal Ondansetron HCl 4 mg 12/04/19 16:56 Zofran IVP Q8HR PRN Nausea And Vomiting Pantoprazole Sodium 40 mg 12/05/19 09:00 12/05/19 09:08 Protonix IV 40 mg DAILY PATRICK Administration Intake and Output 12/04/19 12/05/19 12/05/19 22:59 06:59 14:59 Other: Weight 80.1 kg 12/05/19 06:29 12/05/19 06:29
[2019-12-05] MEDS ORDERED: AZITHROMYCIN 500 MG in SODIUM CHLORIDE 0.9% 250 ML IVPB SCH (11:30)
[2019-12-05] MEDS ORDERED: IPRATROPIUM-ALBUTEROL 3 ML NEB INHALATION SCH (12:00)
[2019-12-05] MEDS: IPRATROPIUM-ALBUTEROL 3 ML NEB INHALATION SCH ×3 (12:04→20:25)
[2019-12-05 14:22] VITALS: BMI 23.9
--- NOTE | 2019-12-05 14:57 | CONS ---
CONSULTATION Blaze Wright is a 69-year-old male who presented to [facility] when he was having difficulty eating. He was unable to keep food down and felt like he was filling up with water and food whenever he swallowed anything. He has a known history of lap band surgery and it was thought this was being distal due to the lap band being tight. He subsequently is admitted for possible revision of the lap band or impossible removal as well. He has been having some cough with some wheezing off and on as well and is bringing up some yellowish phlegm. He denies any fever, chills or rigors. He previously has a history of severe allergic asthma with chronic obstructive pulmonary disease. His FEV1 in 2013, post bronchodilator was 2.23 L, that is 59% of predicted. He also had positive E positivity to several aeroallergens and had infiltrate initially presenting as a left lung abscess, which ultimately was thought to be due to aspiration. He has had aspiration pneumonias off and on as well that usually respond to antibiotics with a steroid burst because of asthma exacerbation as well. He does not have any chest pain at this time. He seems somewhat cachectic and has not been able to keep any food down for the last several days. PAST MEDICAL HISTORY: As I alluded to, was positive for severe asthma with COPD, previous lung abscess, previous aspiration type pneumonia, history of severe coronary artery disease, being on dual platelet therapy. History of chronic persistent atrial fibrillation. History of dyslipidemia. SOCIAL HISTORY: Patient is a former smoker. He does not drink alcohol excessively. FAMILY HISTORY: Noncontributory. MEDICATIONS: Prior to his admission were hydralazine, Xarelto, Nitrostat, Singulair, Lopressor, Hyzaar, DuoNeb, Plavix, Pulmicort, Lipitor. REVIEW OF SYSTEMS: Positive for weight loss and cachexia. PHYSICAL EXAMINATION: He is lying in bed. He is 6 feet tall with a weight of 80.1 kg with a BMI of 23.9, blood pressure 126/80, respiratory rate of 20, pulse rate of 85, temperature 97.6, O2 saturation on 2 L by nasal cannula is 92%. HEENT: Reveals pupils that are equal. CHEST: Reveals decreased breath sounds with prolonged expiration. There are scattered rhonchi. CARDIOVASCULAR SYSTEM: Reveals an S1, S2. ABDOMEN: Scaphoid. There is no pedal edema. LABS: Reveal a white count of 11.4, hemoglobin of 7.3, sodium 134, potassium 3.2, chloride 95, bicarb 29, BUN 18, creatinine 0.88, albumin of 3.2. Chest x-ray shows multiple areas of pulmonary infiltrate. The left upper lobe is unchanged. However, the other infiltrates on the right lower as well as left lower zone. Upper GI, barium swallow shows near complete obstruction at the level of the gastric lap band with less than 1 cc progressing through the lap band after prolonged imaging time. IMPRESSION: 1. Esophageal gastric obstruction. 2. Aspiration type pneumonia. 3. Asthma with exacerbation. 4. Anemia. 5. Hyponatremia. 6. Coronary artery disease. 7. Persistent atrial fibrillation. 8. Chronic obstructive pulmonary disease. At this point in time from a pulmonary standpoint, the patient is at relatively high risk of surgery, though absolutely not contraindicated. The bulk of his problems is essentially being caused by the obstruction of his esophageal gastric area which is causing chronic aspiration as well as exacerbation of his asthma. To this effect, we would recommend definitive surgical treatment as he is unlikely to improve without surgical treatment of this obstruction, would start him on Unasyn and discontinue the Rocephin and Zithromax at this would be too and Ensure or anaerobic coverage for chronic aspiration and aspiration type pneumonia. Will keep him on IV steroids to optimize his airways and agree with proceeding with surgery relatively quickly as we really do not have much of a choice. The patient and his family were counseled regarding his condition and this approach. Will follow him closely during his hospital stay and we would like to thank you for allowing us to care for our patient. He and his family were counseled regarding his condition and this approach. MMODL / IJN: [id number] /
[2019-12-05] MEDS: AMPICILLIN-SULBACTAM 1.5 GM in SODIUM CHLORIDE 0.9% 50 ML IVPB SCH ×2 (16:09→23:39)
--- NOTE | 2019-12-05 17:12 | XR ---
EXAMINATION TYPE: XR chest 2V DATE OF EXAM: 12/05/2019 COMPARISON: Yesterday HISTORY: Cough. Short of breath. TECHNIQUE: FINDINGS: There is coarse infiltrate in both lower lobes as well as the left lung apex. There is no h eart failure. There is some apparent contrast in the lower chest that is probably in the hiatal herni a. There is mild blunting right costophrenic angle. Thoracic aorta is atheromatous. IMPRESSION: Patchy bilateral pulmonary infiltrates not changed compared to yesterday. Small pleural effusion on t he right side. No heart failure.
[2019-12-05] MEDS: methylPREDNISolone SOD SUCCI 125 MG/2 ML VIAL IV SCH ×2 (17:47→23:39)
[2019-12-05 18:14] LABS: % Iron Saturation 3.64 (15.00-50.00)
[2019-12-06] MEDS: IPRATROPIUM-ALBUTEROL 3 ML NEB INHALATION SCH ×6 (00:29→19:24)
[2019-12-06] MEDS: D5-0.45% NACL WITH KCL 20MEQ/L 1,000 ML IV SCH ×4 (01:58→16:47)
[2019-12-06] MEDS: HYDROmorphone 0.5 MG/0.5 ML SYRINGE IVP PRN ×4 (04:23→18:14)
[2019-12-06] MEDS: methylPREDNISolone SOD SUCCI 125 MG/2 ML VIAL IV SCH ×3 (05:41→18:14)
[2019-12-06] MEDS: BUDESONIDE 0.5 MG/2 ML NEBU INHALATION SCH ×2 (07:15→19:24)
[2019-12-06 07:50] LABS: Anisocytosis Slight; Basophils % (A) 0 %; Eosinophils % (A) 0 %; HCT 24.6 % (39.0-53.0); Hypochromasia Marked; Lymphocytes # (A) 0.2 k/uL (1.0-4.8); Lymphocytes % (A) 4 %; MCH 17.1 pg (25.0-35.0); MCHC 25.6 g/dL (31.0-37.0); MCV 66.9 fL (80.0-100.0); Mean Platelet Volume 7.3; Microcytosis Marked; Monocytes # (A) 0.1 k/uL (0-1.0); Monocytes % (A) 1 %; Neutrophils # (A) 5.1 k/uL (1.3-7.7); Neutrophils % (A) 94 %; Platelet Count 254 k/uL (150-450); Poikilocytosis Slight; RBC 3.69 m/uL (4.30-5.90); RDW 17.7 % (11.5-15.5); WBC 5.4 k/uL (3.8-10.6)
[2019-12-06 07:56] LABS: HGB 6.3 gm/dL (13.0-17.5)
[2019-12-06 08:02] LABS: ALT 12 U/L (4-49); AST 16 U/L (17-59); African American GFR (CKD) >90 (>60 ml/min/1.73 sqM); Albumin 2.7 g/dL (3.5-5.0); Alkaline Phosphatase 64 U/L (38-126); Anion Gap 8 mmol/L; Blood Urea Nitrogen 14 mg/dL (9-20); Calcium 8.2 mg/dL (8.4-10.2); Carbon Dioxide 29 mmol/L (22-30); Chloride 99 mmol/L (98-107); Glucose 197 mg/dL (74-99); Non-African American GFR(CKD) >90 (>60 ml/min/1.73 sqM); Potassium 3.7 mmol/L (3.5-5.1); Sodium 136 mmol/L (137-145); Total Bilirubin 0.8 mg/dL (0.2-1.3); Total Protein 5.7 g/dL (6.3-8.2)
[2019-12-06] MEDS: AMPICILLIN-SULBACTAM 1.5 GM in SODIUM CHLORIDE 0.9% 50 ML IVPB SCH ×2 (08:28→16:30)
[2019-12-06] MEDS: ATORVASTATIN 80 MG TAB PO SCH (08:29)
[2019-12-06] MEDS: PANTOPRAZOLE 40 MG/10 ML VIAL IV SCH (08:29)
[2019-12-06] MEDS: hydrALAZINE HCL 50 MG TAB PO SCH (08:29)
[2019-12-06] MEDS: MONTELUKAST 10 MG TAB PO SCH (08:30)
[2019-12-06] MEDS: METOPROLOL TARTRATE 50 MG TAB PO SCH (08:30)
[2019-12-06] MEDS: HYDROCHLOROTHIAZIDE 12.5 MG CAP PO SCH (08:30)
[2019-12-06] MEDS: LOSARTAN 50 MG TAB PO SCH (08:30)
[2019-12-06] MEDS: HEPARIN SODIUM,PORCINE 5,000 UNIT/ML 1 ML VIAL SQ SCH ×3 (08:37→16:30)
--- NOTE | 2019-12-06 09:59 | P.PN ---
<Yen Jerry - Last Filed: 12/06/19 09:55> Subjective Progress Note Date: 12/06/19 CHIEF COMPLAINT: Dysphagia HISTORY OF PRESENT ILLNESS: Patient examined this morning at the bedside. He denies abdominal pain. Denies nausea or vomiting. He is NPO. Respiratory status appears improved today. Hemoglobin 6.3 today. No signs of GI bleeding. Vital signs stable. PHYSICAL EXAM: VITAL SIGNS: Reviewed. Appears pale. GENERAL: Well-developed in no acute distress. HEENT: No sclera icterus. Extraocular movements grossly intact. Moist buccal mucosa. Head is atraumatic, normocephalic. ABDOMEN: Soft. Nondistended. Nontender. NEUROLOGIC: Alert and oriented. Cranial nerves II through XII grossly intact. ASSESSMENT: 1. Dysphagia 2. Gastric outlet obstruction secondary to lap band PLAN: -NPO. Continue IV fluids -Continue to hold Xarelto and Plavix -1 unit RBC. Recheck hemoglobin 1 hour post transfusion. Possible second unit of RBC pending repeat CBC. -Await clearance from pulmonary, cardiology, and internal medicine -Tentatively scheduled for surgery tomorrow with Dr. Ennis Nurse practitioner note has been reviewed by physician. Signing provider agrees with the documented findings, assessment, and plan of care. Objective - Vital Signs Vital signs: Vital Signs Temp 97.8 F 12/06/19 07:00 Pulse 84 12/06/19 07:16 Resp 18 12/06/19 07:00 BP 153/90 12/06/19 07:00 Pulse Ox 98 12/06/19 07:00 Intake & Output 12/05/19 12/06/19 12/06/19 18:59 06:59 18:59 Intake Total 250 Balance 250 Weight 80.1 kg Intake: Intake, IV Titration 250 Amount D5-0.45% NaCl with KCl 250 20Meq/l 1,000 ml @ 125 mls/hr IV .Q8H [facility] Rx#: [id number] Other: # Voids 1 - Labs CBC & Chem 7: 12/06/19 06:56 12/06/19 06:56 Labs: Abnormal Lab Results - Last 24 Hours (Table) 12/05/19 12/06/19 12/06/19 Range/Units 06:29 06:56 06:56 RBC 3.69 L (4.30-5.90) m/uL Hgb 6.3 L* (13.0-17.5) gm/dL Hct 24.6 L (39.0-53.0) % MCV 66.9 L (80.0-100.0) fL MCH 17.1 L (25.0-35.0) pg MCHC 25.6 L (31.0-37.0) g/dL RDW 17.7 H (11.5-15.5) % Lymphocytes # 0.2 L (1.0-4.8) k/uL Sodium 136 L (137-145) mmol/L Glucose 197 H (74-99) mg/dL Calcium 8.2 L (8.4-10.2) mg/dL Iron 11 L (65-175) ug/dL % Saturation 3.64 L (15.00-50.00) AST 16 L (17-59) U/L Total Protein 5.7 L (6.3-8.2) g/dL Albumin 2.7 L (3.5-5.0) g/dL Microbiology - Last 24 Hours (Table) 12/05/19 20:30 Sputum Culture - Preliminary Sputum <Cristopher Ennis - Last Filed: 12/06/19 18:49> Subjective As above. Hemoglobin improved after 1 unit. We will provide second unit of blood. Laparoscopic lap band removal scheduled for tomorrow. Risks of bleeding, infection, gastric perforation, findings of gastric erosion, conversion to an open procedure, liver and spleen injury, persistent dysphagia, reflux, weight gain, respiratory and cardiac complications reviewed. He understands and wishes to proceed. Objective - Vital Signs Vital signs: Vital Signs Temp 97.6 F 12/06/19 16:14 Pulse 84 12/06/19 16:14 Resp 16 12/06/19 16:14 BP 150/81 12/06/19 16:14 Pulse Ox 91 L 12/06/19 16:14 Intake & Output 12/05/19 12/06/19 12/06/19 18:59 06:59 18:59 Intake Total 250 310 Balance 250 310 Weight 80.1 kg Intake: Intake, IV Titration 250 Amount D5-0.45% NaCl with KCl 250 20Meq/l 1,000 ml @ 125 mls/hr IV .Q8H [facility] Rx#: [id number] Blood Product 310 Rc As-1 Unit 310 [id number] Other: # Voids 1 2 - Labs CBC & Chem 7: 12/06/19 17:36 12/06/19 06:56 Labs: Abnormal Lab Results - Last 24 Hours (Table) 12/06/19 12/06/19 12/06/19 Range/Units 06:56 06:56 09:11 RBC 3.69 L (4.30-5.90) m/uL Hgb 6.3 L* (13.0-17.5) gm/dL Hct 24.6 L (39.0-53.0) % MCV 66.9 L (80.0-100.0) fL MCH 17.1 L (25.0-35.0) pg MCHC 25.6 L (31.0-37.0) g/dL RDW 17.7 H (11.5-15.5) % Lymphocytes # 0.2 L (1.0-4.8) k/uL Sodium 136 L (137-145) mmol/L Glucose 197 H (74-99) mg/dL Calcium 8.2 L (8.4-10.2) mg/dL AST 16 L (17-59) U/L Total Protein 5.7 L (6.3-8.2) g/dL Albumin 2.7 L (3.5-5.0) g/dL Crossmatch See Detail 12/06/19 Range/Units 17:36 RBC 4.20 L (4.30-5.90) m/uL Hgb 7.7 L (13.0-17.5) gm/dL Hct 28.9 L (39.0-53.0) % MCV 68.7 L (80.0-100.0) fL MCH 18.4 L (25.0-35.0) pg MCHC 26.8 L (31.0-37.0) g/dL RDW 18.9 H (11.5-15.5) % Lymphocytes # (1.0-4.8) k/uL Sodium (137-145) mmol/L Glucose (74-99) mg/dL Calcium (8.4-10.2) mg/dL AST (17-59) U/L Total Protein (6.3-8.2) g/dL Albumin (3.5-5.0) g/dL Crossmatch Microbiology - Last 24 Hours (Table) 12/05/19 20:30 Gram Stain - Preliminary Sputum Sputum Culture - Preliminary
--- NOTE | 2019-12-06 10:31 | P.PN ---
Subjective Progress Note Date: 12/06/19 This is a 69-year-old male patient of Dr. Darden. Patient presented with complaints of gastric outlet obstruction secondary to lap band. Patient has been admitted under surgical services for eventual removal of left lap band.patient reports that he had lap band procedure in 2006 but has had increased symptoms of nausea and vomiting over the past few months. Additional medical history includes atrial fibrillation which she is maintained on xarelto, COPD and coronary artery disease with cardiac stents 13 months ago. Chest x-ray performed showing multiple areas of pulmonary infiltrate left upper lobe density at the apex unchanged and consistent with pleural and pulmonary scarring the other infiltrate new Compared to old exam consistent with inflammatory disease there are also some atelectasis and volume loss left lower lobe with slight shift of the heart to the right side. No heart failure. Patient will be started on IV antibiotics. Sputum culture ordered. Repeat chest x-ray ordered. Pulmonary service is consulted. We'll also consult cardiology services due to cardiac history for cardiac clearance. She is hemoglobin also low at 7.3. Patient denies any signs of bleeding or dark stools. Patient has been on Xarelto and Plavix which are currently both on hold. At this time are older stool for occult blood and iron studies. At this time patient is not medically cleared. Further workup is needed consults for pulmonary and cardiology to clear patient prior to any procedures. On 12/06/2019 patient is alert and oriented 3 patient is resting comfortably in bed. Hemoglobin low at 6.3. Did discuss case with surgical team. Will transfuse 1 unit of PRBCs and continue to monitor. Antibiotics adjusted to Unasyn with concerns of aspiration pneumonia per Dr. ESTER Quezada. Patient was evaluated by cardiology services EKG and 2-D echo has been ordered per cardiology no actual contraindications to surgical intervention. At this time patient denies chest pain or shortness breath. Patient denies nausea vomiting or diarrhea. Patient denies any urinary burning or frequency Objective - Vital Signs Vital signs: Vital Signs Temp 97.8 F 12/06/19 07:00 Pulse 84 12/06/19 07:16 Resp 18 12/06/19 07:00 BP 153/90 12/06/19 07:00 Pulse Ox 98 12/06/19 07:00 Intake & Output 12/05/19 12/06/19 12/06/19 18:59 06:59 18:59 Intake Total 250 Balance 250 Weight 80.1 kg Intake: Intake, IV Titration 250 Amount D5-0.45% NaCl with KCl 250 20Meq/l 1,000 ml @ 125 mls/hr IV .Q8H [facility] Rx#: [id number] Other: # Voids 1 - Exam Head normocephalic Neck supple Lungs diminished bilaterally with rhonchi Heart irregular heart rate. Known atrial fibrillation Abdomen is soft nontender nondistended positive bowel sounds no hepatosplenomegaly Extremities no edema Neuro alert and orientated to 3 - Labs CBC & Chem 7: 12/06/19 06:56 12/06/19 06:56 Labs: Abnormal Lab Results - Last 24 Hours (Table) 12/05/19 12/06/19 12/06/19 Range/Units 06:29 06:56 06:56 RBC 3.69 L (4.30-5.90) m/uL Hgb 6.3 L* (13.0-17.5) gm/dL Hct 24.6 L (39.0-53.0) % MCV 66.9 L (80.0-100.0) fL MCH 17.1 L (25.0-35.0) pg MCHC 25.6 L (31.0-37.0) g/dL RDW 17.7 H (11.5-15.5) % Lymphocytes # 0.2 L (1.0-4.8) k/uL Sodium 136 L (137-145) mmol/L Glucose 197 H (74-99) mg/dL Calcium 8.2 L (8.4-10.2) mg/dL Iron 11 L (65-175) ug/dL % Saturation 3.64 L (15.00-50.00) AST 16 L (17-59) U/L Total Protein 5.7 L (6.3-8.2) g/dL Albumin 2.7 L (3.5-5.0) g/dL Microbiology - Last 24 Hours (Table) 12/05/19 20:30 Sputum Culture - Preliminary Sputum Assessment and Plan Assessment: 1. Gastric outlet obstruction secondary to lap band. Plans for eventual removal of lap band per surgical services. 2. Aspiration type pneumonia. Antibiotics adjusted per pulmonary to Unasyn. Pulmonary patient is likely aspirating caused by the obstruction of his esophageal gastric area. IV steroids have been added 3. Known coronary artery disease with recent stent 13 months ago. Patient is maintained on xarelto and Plavix. Both of which are on hold. 2-D echo and EKG have been ordered per cardiology 4. Anemia. Hemoglobin low at 7.2. Anticoagulation currently on hold. Stool for occult blood ordered iron studies ordered. Hemoglobin low at 6.3. Patient will be transfused with 1 unit PRBCs. Discussed case with surgical services will continue to monitor at this time 5. History of lap band procedure in 2006 6. History of atrial fibrillation. Xarelto currently on hold cardiology services have been consulted 7. History of COPD. Pulmonary services have been consulted patient started on IV steroids. 8. History of essential hypertension 9. History of hyperlipidemia. Patient maintained on statin. DVT prophylaxis SCDs. GI prophylaxis Protonix Stool for occult blood and iron studies ordered for anemia GI and pulmonary services following 1 unit of PRBCs per surgical services Tentatively scheduled for surgery tomorrow with Dr. Ennis Thank you for this consultation we will continue to follow patient closely throughout stay I performed an examination of the patient and discussed their management with the Nurse Practitioner. I have reviewed the Nurse Practitioner's notes and agree with the documented findings and plan of care
--- NOTE | 2019-12-06 13:03 | P.PN ---
Subjective HISTORY OF PRESENTING ILLNESS This is a pleasant 69-year-old male past medical history significant for coronary artery disease s/p PCI OM, chronic persistent atrial fibrillation on longterm anti-coagulation, COPD, hypertension, dyslipidemia and GERD. He follows in the office with Dr. Quezada. He is seen and examined sitting up in no acute distress. He denies chest pain, dizziness, shortness of breath or palpitations. Hgb dropped from 7.2 to 6.3 in the last 24 hours. He is scheduled to have a blood transfusion. Surgery is scheduled for tomorrow. Blood pressure 152/88 heart rate 82. Echocardiogram has been obtained and will be reviewed. PHYSICAL EXAMINATION CONSTITUTIONAL: No apparent distress. Generalized pallor. HEENT: Head is normocephalic. Pupils are equal, round. Sclerae anicteric. Mucous membranes of the mouth are moist. No JVD. No carotid bruit. CHEST EXAMINATION: Bilateral wheezing, no rales or rhonchi. No chest wall tenderness is noted on palpation or with deep breathing. HEART EXAMINATION: Regular rate and rhythm. S1, S2 heard. No murmurs, gallops or rub. EXTREMITIES: 2+ peripheral pulses, trace bilateral lower extremity edema and no calf tenderness. ASSESSMENT Gastric outlet obstruction and dysphagia History of lap band surgery 2006 Coronary artery disease status post PCI November 2018 maintained on dual antipla telet therapy Hypertension Chronic persistent atrial fibrillation on long-term anticoagulation Dyslipidemia COPD PLAN Continue to hold Xarelto on Plavix. Stable from a cardiac perspective to proceed with surgery. Nurse Practitioner note has been reviewed, I agree with a documented findings and plan of care. Patient was seen and examined. Objective - Vital Signs Vital signs: Vital Signs Temp 97.6 F 12/06/19 12:50 Pulse 80 12/06/19 12:50 Resp 16 12/06/19 12:50 BP 140/77 12/06/19 12:50 Pulse Ox 98 12/06/19 12:50 Intake & Output 12/05/19 12/06/19 12/06/19 18:59 06:59 18:59 Intake Total 250 0 Balance 250 0 Weight 80.1 kg Intake: Intake, IV Titration 250 Amount D5-0.45% NaCl with KCl 250 20Meq/l 1,000 ml @ 125 mls/hr IV .Q8H [facility] Rx#: [id number] Blood Product 0 Rc As-1 Unit 0 [id number] Other: # Voids 1 - Labs CBC & Chem 7: 12/06/19 06:56 12/06/19 06:56 Labs: Abnormal Lab Results - Last 24 Hours (Table) 12/05/19 12/06/19 12/06/19 Range/Units 06:29 06:56 06:56 RBC 3.69 L (4.30-5.90) m/uL Hgb 6.3 L* (13.0-17.5) gm/dL Hct 24.6 L (39.0-53.0) % MCV 66.9 L (80.0-100.0) fL MCH 17.1 L (25.0-35.0) pg MCHC 25.6 L (31.0-37.0) g/dL RDW 17.7 H (11.5-15.5) % Lymphocytes # 0.2 L (1.0-4.8) k/uL Sodium 136 L (137-145) mmol/L Glucose 197 H (74-99) mg/dL Calcium 8.2 L (8.4-10.2) mg/dL Iron 11 L (65-175) ug/dL % Saturation 3.64 L (15.00-50.00) AST 16 L (17-59) U/L Total Protein 5.7 L (6.3-8.2) g/dL Albumin 2.7 L (3.5-5.0) g/dL Crossmatch 12/06/19 Range/Units 09:11 RBC (4.30-5.90) m/uL Hgb (13.0-17.5) gm/dL Hct (39.0-53.0) % MCV (80.0-100.0) fL MCH (25.0-35.0) pg MCHC (31.0-37.0) g/dL RDW (11.5-15.5) % Lymphocytes # (1.0-4.8) k/uL Sodium (137-145) mmol/L Glucose (74-99) mg/dL Calcium (8.4-10.2) mg/dL Iron (65-175) ug/dL % Saturation (15.00-50.00) AST (17-59) U/L Total Protein (6.3-8.2) g/dL Albumin (3.5-5.0) g/dL Crossmatch See Detail Microbiology - Last 24 Hours (Table) 12/05/19 20:30 Gram Stain - Preliminary Sputum Sputum Culture - Preliminary
[2019-12-06] MEDS ORDERED: HYDROmorphone 0.5 MG/0.5 ML SYRINGE IVP PRN (13:52)
[2019-12-06] MEDS ORDERED: DEXAMETHASONE SOD PHOSPHATE 10 MG/ML 1 ML VIAL IV ONE (13:52)
[2019-12-06] MEDS ORDERED: ONDANSETRON 4 MG/2 ML VIAL IVP ONE (13:52)
[2019-12-06] MEDS: LACTATED RINGERS 1,000 ML IV SCH (16:34)
--- NOTE | 2019-12-06 16:44 | PN ---
PROGRESS NOTE DATE OF SERVICE: 12/06/2019 The patient is a 69-year-old male who is seen sitting up in a chair, is awake, alert. Denies any shortness of breath. Denies pain. The patient is hemodynamically stable, afebrile. Hemoglobin was low at 6.3 and the patient is receiving 1 unit of packed red blood cells at this time. The patient's family is also at the bedside. The patient is hemodynamically stable, afebrile, in no acute distress. PHYSICAL EXAMINATION: VITAL SIGNS: Temperature is 97.6, heart rate is 76, respiratory rate is 18, blood pressure is 150/87, O2 saturation is 98% on 2 liters O2 via nasal cannula. HEENT: Head is normocephalic/atraumatic. NECK: Neck is supple. Trachea is midline. LUNGS: Diminished breath sounds with expiratory wheeze and prolonged expiratory phase. HEART: S1 and S2 are heard, not tachycardic. ABDOMEN: Abdomen is soft. Bowel sounds are heard. EXTREMITIES: Extremities with no edema. NEUROLOGIC: The patient is awake and alert. LABORATORY DATA: White count is 5.4, hemoglobin 6.3, hematocrit is 24.6 with 254,000 platelets. Sodium is 136, potassium is 3.7, chloride is 99, CO2 is 29, anion gap is 8, BUN is 14, creatinine 0.77, glucose 197, calcium 8.2. Total bilirubin 0.8, AST is 16, ALT is 12, alkaline phosphatase is 64, total protein 5.7, albumin is 2.7. No new imaging to review. IMPRESSION: 1. Esophageal gastric obstruction. 2. Aspiration-type pneumonia. 3. Asthma with exacerbation. 4. Anemia. 5. Hyponatremia. 6. Coronary artery disease. 7. Persistent atrial fibrillation. 8. Chronic obstructive pulmonary disease. PLAN: Continue current medications which have been reviewed. Continue bronchodilators, aerosol steroids, intravenous Solu-Medrol, gastrointestinal and deep venous thrombosis prophylaxis. Patient is receiving 1 unit of packed red blood cells. Will order incentive spirometry for the patient to start using prior to surgery and continue to follow patient closely with you making further changes if necessary prior to surgery. MMODL / IJN: [id number] /
[2019-12-06 18:00] LABS: Anisocytosis Slight; HCT 28.9 % (39.0-53.0); HGB 7.7 gm/dL (13.0-17.5); Hypochromasia Marked; MCH 18.4 pg (25.0-35.0); MCHC 26.8 g/dL (31.0-37.0); MCV 68.7 fL (80.0-100.0); Mean Platelet Volume 8.4; Microcytosis Marked; Platelet Count 300 k/uL (150-450); Poikilocytosis Moderate; RDW 18.9 % (11.5-15.5); WBC 8.2 k/uL (3.8-10.6)
[2019-12-07] MEDS: AMPICILLIN-SULBACTAM 1.5 GM in SODIUM CHLORIDE 0.9% 50 ML IVPB SCH ×3 (00:03→16:59)
[2019-12-07] MEDS: HYDROmorphone 0.5 MG/0.5 ML SYRINGE IVP PRN ×6 (00:03→22:06)
[2019-12-07] MEDS: methylPREDNISolone SOD SUCCI 125 MG/2 ML VIAL IV SCH ×3 (00:04→12:34)
[2019-12-07] MEDS: HEPARIN SODIUM,PORCINE 5,000 UNIT/ML 1 ML VIAL SQ SCH ×3 (00:04→16:57)
[2019-12-07] MEDS: IPRATROPIUM-ALBUTEROL 3 ML NEB INHALATION SCH ×6 (00:23→21:00)
[2019-12-07] MEDS: D5-0.45% NACL WITH KCL 20MEQ/L 1,000 ML IV SCH ×3 (03:47→17:02)
[2019-12-07] MEDS: PANTOPRAZOLE 40 MG/10 ML VIAL IV SCH (07:24)
[2019-12-07] MEDS: HYDROCHLOROTHIAZIDE 12.5 MG CAP PO SCH (07:26)
[2019-12-07] MEDS: METOPROLOL TARTRATE 50 MG TAB PO SCH (07:27)
[2019-12-07] MEDS: LOSARTAN 50 MG TAB PO SCH (07:28)
[2019-12-07] MEDS: hydrALAZINE HCL 50 MG TAB PO SCH (07:28)
[2019-12-07] MEDS: ATORVASTATIN 80 MG TAB PO SCH (07:30)
[2019-12-07] MEDS: MONTELUKAST 10 MG TAB PO SCH (07:30)
[2019-12-07 08:09] LABS: Anisocytosis Slight; Basophils % (A) 0 %; Eosinophils % (A) 0 %; HCT 29.3 % (39.0-53.0); HGB 8.1 gm/dL (13.0-17.5); Hypochromasia Marked; Lymphocytes # (A) 0.2 k/uL (1.0-4.8); Lymphocytes % (A) 3 %; MCHC 27.5 g/dL (31.0-37.0); MCV 69.2 fL (80.0-100.0); Mean Platelet Volume 7.2; Microcytosis Marked; Monocytes # (A) 0.2 k/uL (0-1.0); Monocytes % (A) 3 %; Neutrophils # (A) 8.4 k/uL (1.3-7.7); Neutrophils % (A) 94 %; Platelet Count 270 k/uL (150-450); Poikilocytosis Marked; RBC 4.24 m/uL (4.30-5.90); RDW 19.5 % (11.5-15.5); WBC 8.9 k/uL (3.8-10.6)
[2019-12-07 08:25] LABS: ALT 13 U/L (4-49); AST 17 U/L (17-59); African American GFR (CKD) >90 (>60 ml/min/1.73 sqM); Albumin 2.9 g/dL (3.5-5.0); Alkaline Phosphatase 62 U/L (38-126); Anion Gap 7 mmol/L; Blood Urea Nitrogen 15 mg/dL (9-20); Calcium 8.9 mg/dL (8.4-10.2); Carbon Dioxide 29 mmol/L (22-30); Chloride 101 mmol/L (98-107); Glucose 172 mg/dL (74-99); Non-African American GFR(CKD) 90 (>60 ml/min/1.73 sqM); Potassium 4.1 mmol/L (3.5-5.1); Sodium 137 mmol/L (137-145); Total Protein 5.9 g/dL (6.3-8.2)
[2019-12-07] MEDS: BUDESONIDE 0.5 MG/2 ML NEBU INHALATION SCH ×2 (08:29→21:00)
[2019-12-07] MEDS ORDERED: IV FLUID CONTINUATION 700 ML IV ONE (08:48)
[2019-12-07] MEDS ORDERED: HEPARIN SODIUM,PORCINE 5,000 UNIT/ML 1 ML VIAL SQ ONE (09:19)
--- NOTE | 2019-12-07 09:25 | P.PN ---
Progress Note - Text Progress Note Date: 12/07/19 Patient still complaining of reflux. We'll proceed with laparoscopic lap band removal at this time. Risks previously described.
[2019-12-07] MEDS ORDERED: ONDANSETRON 4 MG/2 ML VIAL IVP ONE (09:48)
[2019-12-07] MEDS ORDERED: LACTATED RINGERS 1,000 ML IV ONE (09:48)
[2019-12-07] MEDS ORDERED: BUPIVACAINE (PF) 0.25% 30 ML VIAL SQ ONE ×3 (09:49→10:13)
[2019-12-07] MEDS ORDERED: PROPOFOL 10 MG/ML 20 ML VIAL IV ONE (09:50)
[2019-12-07] MEDS ORDERED: ROCURONIUM BROMIDE 10 MG/ML 5 ML VIAL IV ONE (09:50)
[2019-12-07] MEDS ORDERED: MIDAZOLAM 2 MG/2 ML VIAL ONE (09:50)
[2019-12-07] MEDS ORDERED: SUCCINYLCHOLINE CHLORIDE 100 MG/5 ML SYR IV ONE (09:50)
[2019-12-07] MEDS ORDERED: LIDOCAINE 1% INJ 10MG/ML (20 ML MDV) ONE (09:50)
[2019-12-07] MEDS ORDERED: GLYCOPYRROLATE 0.2 MG/ML 2 ML VIAL ONE (09:50)
[2019-12-07] MEDS ORDERED: NEOSTIGMINE 1 MG/ML 10 ML VIAL ONE (09:50)
[2019-12-07] MEDS ORDERED: fentaNYL (PF) 50 MCG/ML 2 ML AMP ONE (09:50)
[2019-12-07] MEDS ORDERED: PHENYLEPHRINE-0.9% NACL SYG 1 MG/10 ML SYRINGE ONE (09:50)
[2019-12-07] MEDS ORDERED: ALBUTEROL INHALER 60 PUFF/8 GM INHALER INHALATION ONE (09:50)
[2019-12-07] MEDS ORDERED: METHYLENE BLUE 10 MG/ML (10 ML VIAL) MISCELLANE ONE (10:30)
--- NOTE | 2019-12-07 11:40 | P.OP ---
Date of Procedure: 12/07/19 Procedure(s) Performed: PREOPERATIVE DIAGNOSIS: Esophageal obstruction POSTOPERATIVE DIAGNOSIS: Same, hiatal hernia PROCEDURE: Laparoscopic lap band removal SURGEON: Raymon EBL: Minimal ANESTHESIA: General COMPLICATIONS: None OPERATIVE PROCEDURE: The patient was brought and placed on the operating room table in the supine position. The patient was placed under general anesthesia at that time. The patient was then placed in lithotomy. The abdomen was prepped and draped in the usual sterile fashion. The previous port incision was localized and then incised using a scalpel. The port was easily excised using electrocautery. Entrance into the perineal cavity occurred using a 5 mm optical trocar through the old trocar entrance site. Insufflation took place to 15 mmHg. A right subxiphoid 5 mm trocar was placed. This was then removed and the medium Glendy hook was used to elevate the left lobe of the liver anteriorly. An additional 5 mm trocar was placed under direct visualization in the left lateral upper quadrant. The original 5 mm trocar was switched to a 15 mm trocar. A additional 5 mm trocar was placed in the right upper quadrant under direct dilatation. An additional 5 mm trocar was then placed in the right supraumbilical location. The patient's band was more chronically inflamed then normal however not to the degree that erosion was suspected. There were adhesions to the band in the buccal that were lysed using both the LigaSure and electrocautery. The band was then cut using the laparoscopic anneliese. The band was then removed relatively easily in 2 portions through the 15 mm trocar site. The stomach itself was inspected and revealed no evidence of erosion or p rolapse. I insufflated the stomach 1 L of methylene blue saline with no evidence of leak. The trochars were removed. The fascia at the 15 mm site was closed using a [id number] 0 Vicryl stitch. The subcutaneous tissues at the port site was closed using a 3-0 Vicryl suture. The skin at all 5 incision sites were closed using 4-0 Monocryl sutures. Skin glue was then applied. DISPOSITION: Stable to recovery room
[2019-12-07] MEDS: KETOROLAC 30 MG/ML 1 ML VIAL IVP SCH ×2 (12:33→17:00)
--- NOTE | 2019-12-07 13:43 | P.PN ---
Subjective Progress Note Date: 12/07/19 This is a 69-year-old male patient of Dr. Darden. Patient presented with complaints of gastric outlet obstruction secondary to lap band. Patient has been admitted under surgical services for eventual removal of left lap band.patient reports that he had lap band procedure in 2006 but has had increased symptoms of nausea and vomiting over the past few months. Additional medical history includes atrial fibrillation which she is maintained on xarelto, COPD and coronary artery disease with cardiac stents 13 months ago. Chest x-ray performed showing multiple areas of pulmonary infiltrate left upper lobe density at the apex unchanged and consistent with pleural and pulmonary scarring the other infiltrate new Compared to old exam consistent with inflammatory disease there are also some atelectasis and volume loss left lower lobe with slight shift of the heart to the right side. No heart failure. Patient will be started on IV antibiotics. Sputum culture ordered. Repeat chest x-ray ordered. Pulmonary service is consulted. We'll also consult cardiology services due to cardiac history for cardiac clearance. She is hemoglobin also low at 7.3. Patient denies any signs of bleeding or dark stools. Patient has been on Xarelto and Plavix which are currently both on hold. At this time are older stool for occult blood and iron studies. At this time patient is not medically cleared. Further workup is needed consults for pulmonary and cardiology to clear patient prior to any procedures. On 12/06/2019 patient is alert and oriented 3 patient is resting comfortably in bed. Hemoglobin low at 6.3. Did discuss case with surgical team. Will transfuse 1 unit of PRBCs and continue to monitor. Antibiotics adjusted to Unasyn with concerns of aspiration pneumonia per Dr. ESTER Quezada. Patient was evaluated by cardiology services EKG and 2-D echo has been ordered per cardiology no actual contraindications to surgical intervention. At this time patient denies chest pain or shortness breath. Patient denies nausea vomiting or diarrhea. Patient denies any urinary burning or frequency On 12/07/2019 patient is alert and oriented 3. Patient is status post lap band removal with Dr. hastings. Patient did receive 2 units PRBCs hemoglobin improving to 8.1. Patient is drowsy but does wake up follow commands. Surgical sites are clean dry and intact. Pulmonary cardiology services are following. Patient will remain on IV antibiotic Unasyn for possible aspiration pneumonia and Solu-Medrol per pulmonary Objective - Vital Signs Vital signs: Vital Signs Temp 88 F L 03/06/20 11:19 Pulse 73 12/07/19 12:04 Resp 16 12/07/19 12:04 BP 133/81 12/07/19 12:04 Pulse Ox 99 12/07/19 12:04 Intake & Output 12/06/19 12/07/19 12/07/19 18:59 06:59 18:59 Intake Total 310 1510 800 Output Total 5 Balance 310 1510 795 Weight 80.1 kg Intake: IV 800 Intake, IV Titration 1200 Amount Ampicillin-Sulbactam 1.5 1200 gm In Sodium Chloride 0.9 % 50 ml @ 100 mls/hr IVPB Q8HR [facility] Rx#:[id number] Blood Product 310 310 Rc As-1 Unit 310 [id number] Rc As-1 Unit 310 [id number] Output: Estimated Blood Loss 5 Other: Voiding Method Urinal Urinal # Voids 2 1 - Exam Head normocephalic Neck supple Lungs diminished bilaterally with rhonchi Heart irregular heart rate. Known atrial fibrillation Abdomen is soft nontender nondistended positive bowel sounds no hepatosplenomegaly Extremities no edema Neuro alert and orientated to 3 - Labs CBC & Chem 7: 12/07/19 07:29 12/07/19 07:29 Labs: Abnormal Lab Results - Last 24 Hours (Table) 12/06/19 12/06/19 12/07/19 Range/Units 09:11 17:36 07:29 RBC 4.20 L 4.24 L (4.30-5.90) m/uL Hgb 7.7 L 8.1 L (13.0-17.5) gm/dL Hct 28.9 L 29.3 L (39.0-53.0) % MCV 68.7 L 69.2 L (80.0-100.0) fL MCH 18.4 L 19.0 L (25.0-35.0) pg MCHC 26.8 L 27.5 L (31.0-37.0) g/dL RDW 18.9 H 19.5 H (11.5-15.5) % Neutrophils # 8.4 H (1.3-7.7) k/uL Lymphocytes # 0.2 L (1.0-4.8) k/uL Glucose (74-99) mg/dL Total Protein (6.3-8.2) g/dL Albumin (3.5-5.0) g/dL Crossmatch See Detail 12/07/19 Range/Units 07:29 RBC (4.30-5.90) m/uL Hgb (13.0-17.5) gm/dL Hct (39.0-53.0) % MCV (80.0-100.0) fL MCH (25.0-35.0) pg MCHC (31.0-37.0) g/dL RDW (11.5-15.5) % Neutrophils # (1.3-7.7) k/uL Lymphocytes # (1.0-4.8) k/uL Glucose 172 H (74-99) mg/dL Total Protein 5.9 L (6.3-8.2) g/dL Albumin 2.9 L (3.5-5.0) g/dL Crossmatch Microbiology - Last 24 Hours (Table) 12/05/19 20:30 Gram Stain - Preliminary Sputum Sputum Culture - Preliminary Assessment and Plan Assessment: 1. Gastric outlet obstruction secondary to lap band with status post laparoscopic left band removal with Dr. hastings. 2. Aspiration type pneumonia. Antibiotics adjusted per pulmonary to Unasyn. Pulmonary patient is likely aspirating caused by the obstruction of his esophageal gastric area. IV steroids have been added per pulmonary 3. Known coronary artery disease with recent stent 13 months ago. Patient is maintained on xarelto and Plavix. Both of which are on hold. Cardiac he services are following 4. Anemia. Hemoglobin low at 7.2. Anticoagulation currently on hold. Stool for occult blood ordered iron studies ordered. Hemoglobin low at 6.3. Patient will be transfused with 1 unit PRBCs. Discussed case with surgical services will continue to monitor at this time. Patient received 2 units of PRBCs. Hemoglobin improving 2.1 5. History of lap band procedure in 2006 6. History of atrial fibrillation. Xarelto currently on hold cardiology services have been consulted 7. History of COPD. Pulmonary services have been consulted patient started on IV steroids. 8. History of essential hypertension 9. History of hyperlipidemia. Patient maintained on statin. DVT prophylaxis SCDs. GI prophylaxis Protonix Stool for occult blood and iron studies ordered for anemia Cardiology and pulmonary services following Thank you for this consultation we will continue to follow patient closely throughout stay I performed an examination of the patient and discussed their management with the Nurse Practitioner. I have reviewed the Nurse Practitioner's notes and agree with the documented findings and plan of care
[2019-12-07] MEDS: LACTATED RINGERS 1,000 ML IV SCH (15:19)
[2019-12-07] MEDS: methylPREDNISolone SOD SUCCI 40 MG/ML 1 ML VIAL IV SCH (15:53)
--- NOTE | 2019-12-07 16:03 | PN ---
PROGRESS NOTE DATE OF SERVICE: 12/07/2019 Patient is a 69-year-old male who is seen lying in bed, is awake and alert. Patient did return in the last hour or so from the recovery room, status post laparoscopic surgery for removal of lap band. The patient is awake and alert. Family is at the bedside. The patient does complain of some back pain which is chronic in nature. Patient is hemodynamically stable, afebrile, in no acute distress. PHYSICAL EXAMINATION: VITAL SIGNS: Temperature 97.5, heart rate 88, respiratory rate 16, blood pressure 133/81, oxygen saturation 99% on 2 L oxygen via nasal cannula. HEENT: Head is normocephalic, atraumatic. NECK: Supple. Trachea is midline. LUNGS: Slightly diminished breath sounds and a faint wheeze on the right. No wheezes noted on the left. HEART: S1 and S2 are heard. Irregular. Not tachycardic. ABDOMEN: Soft, tender. Bowel sounds are heard. EXTREMITIES: No edema. NEUROLOGIC: Patient is awake and alert. LABS: White count was 8.9, hemoglobin 8.1, hematocrit 29.3 with 270,000 platelets. Sodium is 137, potassium 4.1, chloride 101. CO2 is 29. Anion gap is 7. BUN is 15, creatinine 0.85. Glucose is 172, calcium 8.9, total bilirubin 1.0. AST is 17. ALT is 13, alkaline phosphatase 62, total protein 5.9, albumin 2.9. No new imaging to review. IMPRESSION: 1. Esophageal gastric obstruction, status post laparoscopic surgery for removal of lap band. 2. Aspiration-type pneumonia. 3. Asthma with exacerbation. 4. Anemia. 5. Hyponatremia. 6. Coronary artery disease. 7. Persistent atrial fibrillation. 8. Chronic obstructive pulmonary disease. PLAN: Will start weaning IV Solu-Medrol. Continue bronchodilators and aerosolized steroids. Continue GI and DVT prophylaxis. Continue antibiotics. Continue incentive spirometry with pulmonary hygiene. Increase activity. We will follow patient closely with you, making further changes as necessary. MMODL / IJN: [id number] /
[2019-12-08] MEDS: AMPICILLIN-SULBACTAM 1.5 GM in SODIUM CHLORIDE 0.9% 50 ML IVPB SCH ×2 (00:05→07:36)
[2019-12-08] MEDS: HEPARIN SODIUM,PORCINE 5,000 UNIT/ML 1 ML VIAL SQ SCH ×2 (00:06→07:36)
[2019-12-08] MEDS: KETOROLAC 30 MG/ML 1 ML VIAL IVP SCH ×3 (00:06→12:00)
[2019-12-08] MEDS: methylPREDNISolone SOD SUCCI 40 MG/ML 1 ML VIAL IV SCH ×2 (00:07→07:35)
[2019-12-08] MEDS: IPRATROPIUM-ALBUTEROL 3 ML NEB INHALATION SCH ×4 (00:08→11:16)
[2019-12-08] MEDS: HYDROcodone/APAP 5-325MG 1 EACH TAB PO PRN ×3 (03:47→12:00)
[2019-12-08] MEDS: D5-0.45% NACL WITH KCL 20MEQ/L 1,000 ML IV SCH ×2 (03:51→08:47)
[2019-12-08 07:29] LABS: ALT 16 U/L (4-49); AST 28 U/L (17-59); African American GFR (CKD) >90 (>60 ml/min/1.73 sqM); Albumin 2.9 g/dL (3.5-5.0); Alkaline Phosphatase 61 U/L (38-126); Anion Gap 8 mmol/L; Blood Urea Nitrogen 21 mg/dL (9-20); Calcium 8.9 mg/dL (8.4-10.2); Carbon Dioxide 25 mmol/L (22-30); Chloride 99 mmol/L (98-107); Glucose 164 mg/dL (74-99); Non-African American GFR(CKD) 78 (>60 ml/min/1.73 sqM); Potassium 4.5 mmol/L (3.5-5.1); Sodium 132 mmol/L (137-145); Total Bilirubin 0.7 mg/dL (0.2-1.3); Total Protein 5.9 g/dL (6.3-8.2)
[2019-12-08 07:33] LABS: Anisocytosis Slight; Basophils % (A) 0 %; Eosinophils % (A) 0 %; HCT 30.2 % (39.0-53.0); HGB 8.4 gm/dL (13.0-17.5); Hypochromasia Marked; Lymphocytes # (A) 0.2 k/uL (1.0-4.8); Lymphocytes % (A) 2 %; MCH 19.4 pg (25.0-35.0); MCHC 27.9 g/dL (31.0-37.0); MCV 69.4 fL (80.0-100.0); Mean Platelet Volume 7.4; Microcytosis Marked; Monocytes # (A) 0.3 k/uL (0-1.0); Monocytes % (A) 3 %; Neutrophils # (A) 10.3 k/uL (1.3-7.7); Neutrophils % (A) 95 %; Platelet Count 256 k/uL (150-450); Poikilocytosis Marked; RBC 4.35 m/uL (4.30-5.90); RDW 19.9 % (11.5-15.5); WBC 10.8 k/uL (3.8-10.6)
[2019-12-08] MEDS: BUDESONIDE 0.5 MG/2 ML NEBU INHALATION SCH (07:52)
[2019-12-08] MEDS: PANTOPRAZOLE 40 MG/10 ML VIAL IV SCH (08:41)
[2019-12-08] MEDS: METOPROLOL TARTRATE 50 MG TAB PO SCH (08:41)
[2019-12-08] MEDS: HYDROCHLOROTHIAZIDE 12.5 MG CAP PO SCH (08:42)
[2019-12-08] MEDS: ATORVASTATIN 80 MG TAB PO SCH (08:42)
[2019-12-08] MEDS: hydrALAZINE HCL 50 MG TAB PO SCH (08:42)
[2019-12-08] MEDS: LOSARTAN 50 MG TAB PO SCH (08:42)
[2019-12-08] MEDS: MONTELUKAST 10 MG TAB PO SCH (08:42)
[2019-12-08 10:25] VITALS: BP 124/78; RESP 16; TEMP 97.9
[2019-12-08 11:29] VITALS: PULSE 64
[2019-12-08] MEDS: LACTATED RINGERS 1,000 ML IV SCH (11:59)
--- NOTE | 2019-12-08 13:06 | P.PN ---
Subjective Progress Note Date: 12/08/19 Principal diagnosis: Esophageal gastric obstruction status post laparoscopy surgery for removal of lap band, aspiration pneumonia, acute asthma exacerbation, anemia, hyponatremia, coronary artery disease, chronic atrial fibrillation, COPD 12/08/2019, patient seen eval reexamined during the round labs reviewed medications reviewed patient remains on bronchodilator therapy also on IV steroids agree with discharge planning the IV steroids can be discontinued at the time of discharge This is a 69-year-old male patient of Dr. Darden. Patient presented with complaints of gastric outlet obstruction secondary to lap band. Patient has been admitted under surgical services for eventual removal of left lap band.patient reports that he had lap band procedure in 2006 but has had increased symptoms of nausea and vomiting over the past few months. Additional medical history includes atrial fibrillation which she is maintained on xarelto, COPD and coronary artery disease with cardiac stents 13 months ago. Chest x-ray performed showing multiple areas of pulmonary infiltrate left upper lobe density at the apex unchanged and consistent with pleural and pulmonary scarring the other infiltrate new Compared to old exam consistent with inflammatory disease there are also some atelectasis and volume loss left lower lobe with slight shift of the heart to the right side. No heart failure. Patient will be started on IV antibiotics. Sputum culture ordered. Repeat chest x-ray ordered. Pulmonary service is consulted. We'll also consult cardiology services due to cardiac history for cardiac clearance. She is hemoglobin also low at 7.3. Patient denies any signs of bleeding or dark stools. Patient has been on Xarelto and Plavix which are currently both on hold. At this time are older stool for occult blood and iron studies. At this time patient is not medically cleared. Further workup is needed consults for pulmonary and cardiology to clear patient prior to any procedures. Objective - Vital Signs Vital signs: Vital Signs Temp 97.9 F 12/08/19 07:47 Pulse 64 12/08/19 11:28 Resp 16 12/08/19 07:47 BP 124/78 12/08/19 07:47 Pulse Ox 94 L 12/08/19 07:47 Intake & Output 12/07/19 12/08/19 12/08/19 18:59 06:59 18:59 Intake Total 800 1980 Output Total 5 550 Balance 795 1430 Weight 80.1 kg Intake: IV 800 Intake, IV Titration 1500 Amount D5-0.45% NaCl with KCl 1500 20Meq/l 1,000 ml @ 125 mls/hr IV .Q8H [facility] Rx#: [id number] Oral 480 Output: Urine 550 Estimated Blood Loss 5 Other: Voiding Method Urinal Urinal Urinal # Voids 1 - Exam Head normocephalic Neck supple Lungs diminished bilaterally with rhonchi Heart irregular heart rate. Known atrial fibrillation Abdomen is soft nontender nondistended positive bowel sounds no hepa tosplenomegaly Extremities no edema Neuro alert and orientated to 3 - Labs CBC & Chem 7: 12/08/19 06:51 12/08/19 06:51 Labs: Abnormal Lab Results - Last 24 Hours (Table) 12/08/19 12/08/19 Range/Units 06:51 06:51 WBC 10.8 H (3.8-10.6) k/uL Hgb 8.4 L (13.0-17.5) gm/dL Hct 30.2 L (39.0-53.0) % MCV 69.4 L (80.0-100.0) fL MCH 19.4 L (25.0-35.0) pg MCHC 27.9 L (31.0-37.0) g/dL RDW 19.9 H (11.5-15.5) % Neutrophils # 10.3 H (1.3-7.7) k/uL Lymphocytes # 0.2 L (1.0-4.8) k/uL Sodium 132 L (137-145) mmol/L BUN 21 H (9-20) mg/dL Glucose 164 H (74-99) mg/dL Total Protein 5.9 L (6.3-8.2) g/dL Albumin 2.9 L (3.5-5.0) g/dL Microbiology - Last 24 Hours (Table) 12/05/19 20:30 Gram Stain - Final Sputum Sputum Culture - Final Haemophilus influenzae Assessment and Plan Assessment: Gastric outlet obstruction due to lab panel Aspiration pneumonia Coronary artery disease Anemia Chronic atrial fibrillation COPD Hypertension hypertensive cardiovascular disease Dyslipidemia Plan: Agree will with discharge planning from pulmonary standpoint antibiotics can be switched to oral like Augmentin 500 mg twice a day for 5-7 days and Medrol tapering dose
--- NOTE | 2019-12-08 14:44 | P.PN ---
Subjective Progress Note Date: 12/08/19 CHIEF COMPLAINT: Esophageal obstruction HISTORY OF PRESENT ILLNESS: The patient is a 69-year-old male postop day 1 status post removal of adjustable gastric band for esophageal obstruction. "I ate the whole tray!" He is on full liquid diet. No reports of abdominal pain. He is eager to go home. ROS: No reports of nausea and vomiting. No fevers or chills. No new chest pain. No productive sputum PHYSICAL EXAM: VITAL SIGNS: Reviewed CONSTITUTIONAL: Well developed and in no acute distress. EYES: Conjuctivae without sclera icterus. Extraocular movements grossly intact. HEAD, EARS, NOSE, THROAT: Moist buccal mucosa. Head is atraumatic, normocephalic. Hears conversational speech. No nasal drainage. NECK: Supple. No thyroidomegaly. RESPIRATORY: Non-labored respirations and equal bilateral excursions. CARDIOVASCULAR: Palpable 2+ radial pulses. Regular rate. Regular rhythm. ABDOMEN: Incisions clean dry and intact. Soft. No peritonitis. MUSCULOSKELETAL: No gross deformity of the lower extremities noted. No clubbing. No cyanosis. SKIN: Good skin turgor. Well perfused. NEUROLOGIC: Cranial nerves I through XII grossly intact. No focal or lateralizing signs. PSYCH: Appropriate affect. Alert and oriented to person, place and time. CLINICAL LABS: White blood cell count elevated 10.8, post reactive. Hemoglobin 8.4 from 8.1. ASSESSMENT: 1. Esophageal obstruction from adjustable gastric band 2. Iron deficiency anemia PLAN: 1. He is doing well. 2. Stable for discharge. Objective - Vital Signs Vital signs: Vital Signs Temp 97.9 F 12/08/19 07:47 Pulse 64 12/08/19 11:28 Resp 16 12/08/19 07:47 BP 124/78 12/08/19 07:47 Pulse Ox 94 L 12/08/19 07:47 Intake & Output 12/07/19 12/08/19 12/08/19 18:59 06:59 18:59 Intake Total 800 1980 Output Total 5 550 Balance 795 1430 Weight 80.1 kg Intake: IV 800 Intake, IV Titration 1500 Amount D5-0.45% NaCl with KCl 1500 20Meq/l 1,000 ml @ 125 mls/hr IV .Q8H [facility] Rx#: [id number] Oral 480 Output: Urine 550 Estimated Blood Loss 5 Other: Voiding Method Urinal Urinal Urinal # Voids 1 - Labs CBC & Chem 7: 12/08/19 06:51 12/08/19 06:51 Labs: Abnormal Lab Results - Last 24 Hours (Table) 12/08/19 12/08/19 Range/Units 06:51 06:51 WBC 10.8 H (3.8-10.6) k/uL Hgb 8.4 L (13.0-17.5) gm/dL Hct 30.2 L (39.0-53.0) % MCV 69.4 L (80.0-100.0) fL MCH 19.4 L (25.0-35.0) pg MCHC 27.9 L (31.0-37.0) g/dL RDW 19.9 H (11.5-15.5) % Neutrophils # 10.3 H (1.3-7.7) k/uL Lymphocytes # 0.2 L (1.0-4.8) k/uL Sodium 132 L (137-145) mmol/L BUN 21 H (9-20) mg/dL Glucose 164 H (74-99) mg/dL Total Protein 5.9 L (6.3-8.2) g/dL Albumin 2.9 L (3.5-5.0) g/dL Microbiology - Last 24 Hours (Table) 12/05/19 20:30 Gram Stain - Final Sputum Sputum Culture - Final Haemophilus influenzae Assessment and Plan (1) Esophageal obstruction Current Visit: Yes Status: Acute Code(s): K22.2 - ESOPHAGEAL OBSTRUCTION SNOMED Code(s): 202132163 (2) History of adjustable gastric banding Current Visit: Yes Status: Acute Code(s): Z98.84 - BARIATRIC SURGERY STATUS SNOMED Code(s): 258684026 (3) Complication of gastric banding Current Visit: Yes Status: Acute Code(s): K95.09 - OTHER COMPLICATIONS OF GASTRIC BAND PROCEDURE SNOMED Code(s): 117929359165455 (4) Iron deficiency anemia Current Visit: Yes Status: Acute Code(s): D50.9 - IRON DEFICIENCY ANEMIA, UNSPECIFIED SNOMED Code(s): 70121175 (5) Dysphagia Current Visit: No Status: Acute Code(s): R13.10 - DYSPHAGIA, UNSPECIFIED SNOMED Code(s): 55529610
--- NOTE | 2019-12-08 14:46 | P.DS ---
Providers Date of admission: 12/04/19 16:39 Expected date of discharge: 12/08/19 Attending physician: Cristopher Ennis Consults: 12/04/19 16:56 Consult Physician Routine Consulting Provider: Luna William Consult Reason/Comments: Medical management, Clearance Do you want consulting provider notified?: Yes Consult Physician Routine Consulting Provider: Maycol Quezada Consult Reason/Comments: Pulmonary clearance Do you want consulting provider notified?: Yes 12/05/19 10:30 Consult Physician Routine Consulting Provider: Bg Powell Consult Reason/Comments: cardiac clearance history of stents Do you want consulting provider notified?: Yes Primary care physician: Yobani Gravesoa - Discharge Diagnosis(es) (1) Esophageal obstruction Current Visit: Yes Status: Acute (2) History of adjustable gastric banding Current Visit: Yes Status: Acute (3) Complication of gastric banding Current Visit: Yes Status: Acute (4) Iron deficiency anemia Current Visit: Yes Status: Acute (5) Dysphagia Current Visit: No Status: Acute Hospital Course: CHIEF COMPLAINT: Esophageal obstruction HISTORY OF PRESENT ILLNESS: The patient is a 69-year-old male postop day 1 status post removal of adjustable gastric band for esophageal obstruction. "I ate the whole tray!" He is on full liquid diet. No reports of abdominal pain. He is eager to go home. He came in initially for esophageal obstruction from his adjustable gastric band. Removal of his band was without sequelae. His obstructive symptoms had resolved. ROS: No reports of nausea and vomiting. No fevers or chills. No new chest pain. No productive sputum PHYSICAL EXAM: VITAL SIGNS: Reviewed CONSTITUTIONAL: Well developed and in no acute distress. EYES: Conjuctivae without sclera icterus. Extraocular movements grossly intact. HEAD, EARS, NOSE, THROAT: Moist buccal mucosa. Head is atraumatic, normocephalic. Hears conversational speech. No nasal drainage. NECK: Supple. No thyroidomegaly. RESPIRATORY: Non-labored respirations and equal bilateral excursions. CARDIOVASCULAR: Palpable 2+ radial pulses. Regular rate. Regular rhythm. ABDOMEN: Incisions clean dry and intact. Soft. No peritonitis. MUSCULOSKELETAL: No gross deformity of the lower extremities noted. No clubbing. No cyanosis. SKIN: Good skin turgor. Well perfused. NEUROLOGIC: Cranial nerves I through XII grossly intact. No focal or lateralizing signs. PSYCH: Appropriate affect. Alert and oriented to person, place and time. CLINICAL LABS: White blood cell count elevated 10.8, post reactive. Hemoglobin 8.4 from 8.1. ASSESSMENT: 1. Esophageal obstruction from adjustable gastric band 2. Iron deficiency anemia PLAN: 1. He is doing well. 2. Stable for discharge. Plan - Discharge Summary Discharge Rx Participant: No New Discharge Prescriptions: New oxyCODONE HCL [Oxaydo] 5 mg PO Q6H PRN 3 Days #6 tab PRN Reason: Breakthrough Pain Omeprazole [PriLOSEC] 20 mg PO AC-BRKFST #90 cap Discontinued Clopidogrel [Plavix] 75 mg PO DAILY #90 tab No Action Montelukast Sodium [Singulair] 10 mg PO DAILY hydrALAZINE HCL [Apresoline] 50 mg PO DAILY Metoprolol Tartrate [Lopressor] 100 mg PO DAILY Budesonide [Pulmicort] 0.5 mg INHALATION RT-BID Ipratropium-Albuterol Nebulize [Duoneb 0.5 mg-3 mg/3 ml Soln] 3 ml INHALATION RT-QID Atorvastatin [Lipitor] 80 mg PO DAILY #90 tab Nitroglycerin Sl Tabs [Nitrostat] 0.4 mg SUBLINGUAL Q5M PRN #25 tab PRN Reason: Chest Pain Rivaroxaban [Xarelto] 10 mg PO DAILY Losartan/Hydrochlorothiazide [Hyzaar 100-12.5 Tablet] 1 tab PO DAILY Discharge Medication List Budesonide [Pulmicort] 0.5 mg INHALATION RT-BID 09/28/18 [History] Ipratropium-Albuterol Nebulize [Duoneb 0.5 mg-3 mg/3 ml Soln] 3 ml INHALATION RT-QID 09/28/18 [History] Metoprolol Tartrate [Lopressor] 100 mg PO DAILY 09/28/18 [History] Montelukast Sodium [Singulair] 10 mg PO DAILY 09/28/18 [History] hydrALAZINE HCL [Apresoline] 50 mg PO DAILY 09/28/18 [History] Atorvastatin [Lipitor] 80 mg PO DAILY #90 tab 11/04/18 [Rx] Nitroglycerin Sl Tabs [Nitrostat] 0.4 mg SUBLINGUAL Q5M PRN #25 tab 11/04/18 [Rx] Losartan/Hydrochlorothiazide [Hyzaar 100-12.5 Tablet] 1 tab PO DAILY 12/04/19 [History] Rivaroxaban [Xarelto] 10 mg PO DAILY 12/04/19 [History] Omeprazole [PriLOSEC] 20 mg PO AC-BRKFST #90 cap 12/07/19 [Rx] oxyCODONE HCL [Oxaydo] 5 mg PO Q6H PRN 3 Days #6 tab 12/07/19 [Rx] Follow up Appointment(s)/Referral(s): Haja Quezada MD [STAFF PHYSICIAN] - [facility] [NON-STAFF] - 12/11/19
--- NOTE | 2019-12-08 15:29 | P.PN ---
Subjective Progress Note Date: 12/08/19 This is a 69-year-old male patient of Dr. Darden. Patient presented with complaints of gastric outlet obstruction secondary to lap band. Patient has been admitted under surgical services for eventual removal of left lap band.patient reports that he had lap band procedure in 2006 but has had increased symptoms of nausea and vomiting over the past few months. Additional medical history includes atrial fibrillation which she is maintained on xarelto, COPD and coronary artery disease with cardiac stents 13 months ago. Chest x-ray performed showing multiple areas of pulmonary infiltrate left upper lobe density at the apex unchanged and consistent with pleural and pulmonary scarring the other infiltrate new Compared to old exam consistent with inflammatory disease there are also some atelectasis and volume loss left lower lobe with slight shift of the heart to the right side. No heart failure. Patient will be started on IV antibiotics. Sputum culture ordered. Repeat chest x-ray ordered. Pulmonary service is consulted. We'll also consult cardiology services due to cardiac history for cardiac clearance. She is hemoglobin also low at 7.3. Patient denies any signs of bleeding or dark stools. Patient has been on Xarelto and Plavix which are currently both on hold. At this time are older stool for occult blood and iron studies. At this time patient is not medically cleared. Further workup is needed consults for pulmonary and cardiology to clear patient prior to any procedures. On 12/06/2019 patient is alert and oriented 3 patient is resting comfortably in bed. Hemoglobin low at 6.3. Did discuss case with surgical team. Will transfuse 1 unit of PRBCs and continue to monitor. Antibiotics adjusted to Unasyn with concerns of aspiration pneumonia per Dr. ESTER Quezada. Patient was evaluated by cardiology services EKG and 2-D echo has been ordered per cardiology no actual contraindications to surgical intervention. At this time patient denies chest pain or shortness breath. Patient denies nausea vomiting or diarrhea. Patient denies any urinary burning or frequency On 12/07/2019 patient is alert and oriented 3. Patient is status post lap band removal with Dr. hastings. Patient did receive 2 units PRBCs hemoglobin improving to 8.1. Patient is drowsy but does wake up follow commands. Surgical sites are clean dry and intact. Pulmonary cardiology services are following. Patient will remain on IV antibiotic Unasyn for possible aspiration pneumonia and Solu-Medrol per pulmonary On 12/08/2019 patient was seen and examined on the medical floor he is alert and oriented 3 in no apparent distress there is no fever or chills no headache or dizziness no chest pain no shortness of breath no cough no nausea or vomiting no abdominal pain no diarrhea and no urinary symptoms, patient was evaluated by Dr. Hyman and was discharged home, will arrange for follow-up with primary care physician Dr. Darden in the next 2-3 days Objective - Vital Signs Vital signs: Vital Signs Temp 97.9 F 12/08/19 07:47 Pulse 64 12/08/19 11:28 Resp 16 12/08/19 07:47 BP 124/78 12/08/19 07:47 Pulse Ox 94 L 12/08/19 07:47 Intake & Output 12/07/19 12/08/19 12/08/19 18:59 06:59 18:59 Intake Total 800 1980 Output Total 5 550 Balance 795 1430 Weight 80.1 kg Intake: IV 800 Intake, IV Titration 1500 Amount D5-0.45% NaCl with KCl 1500 20Meq/l 1,000 ml @ 125 mls/hr IV .Q8H [facility] Rx#: [id number] Oral 480 Output: Urine 550 Estimated Blood Loss 5 Other: Voiding Method Urinal Urinal Urinal # Voids 1 2 - Labs CBC & Chem 7: 12/08/19 06:51 12/08/19 06:51 Labs: Abnormal Lab Results - Last 24 Hours (Table) 12/08/19 12/08/19 Range/Units 06:51 06:51 WBC 10.8 H (3.8-10.6) k/uL Hgb 8.4 L (13.0-17.5) gm/dL Hct 30.2 L (39.0-53.0) % MCV 69.4 L (80.0-100.0) fL MCH 19.4 L (25.0-35.0) pg MCHC 27.9 L (31.0-37.0) g/dL RDW 19.9 H (11.5-15.5) % Neutrophils # 10.3 H (1.3-7.7) k/uL Lymphocytes # 0.2 L (1.0-4.8) k/uL Sodium 132 L (137-145) mmol/L BUN 21 H (9-20) mg/dL Glucose 164 H (74-99) mg/dL Total Protein 5.9 L (6.3-8.2) g/dL Albumin 2.9 L (3.5-5.0) g/dL Microbiology - Last 24 Hours (Table) 12/05/19 20:30 Gram Stain - Final Sputum Sputum Culture - Final Haemophilus influenzae
--- NOTE | 2019-12-11 10:26 | ECHOF ---
Referral Reason:pre-op MEASUREMENTS -------- HEIGHT: 182.9 cm WEIGHT: 79.8 kg BP: 126/80 IVSd: 1.1 cm (0.6 - 1.1) LVIDd: 4.8 cm (3.9 - 5.3) LVPWd: 1.0 cm (0.6 - 1.1) IVSs: 1.5 cm LVIDs: 2.8 cm LVPWs: 1.2 cm LA Diam: 3.9 cm (2.7 - 3.8) Ao Diam: 4.7 cm (2.0 - 3.7) MV EXCURSION: 21.622 mm (> 18.000) MV EF SLOPE: 61 mm/s (70 - 150) EPSS: 0.6 cm RAP: 10.00 mmHg RVSP: 58.26 mmHg FINDINGS -------- This was a technically good study. The left ventricular size is normal. There is mild concentric left ventricular hypertrophy. There is normal global left ventricular contractility. The right ventricle is normal in size and function. The left atrium is normal in size. The right atrium is normal in size. Eustachian valve seen in the right atrium (normal finding). Interatrial and interventricular septum intact. The aortic valve is trileaflet and appears structurally normal. There is mild aortic valve sclerosi s. The mitral valve is normal. The tricuspid valve appears structurally normal. Mild tricuspid regurgitation present. There is m ild to moderate pulmonary hypertension. Pulmonic valve appears structurally normal. The aortic root, ascending aorta and aortic arch are normal. The pericardium is normal. CONCLUSIONS -------- 1. This was a technically good study. 2. The left ventricular size is normal. 3. There is mild concentric left ventricular hypertrophy. 4. There is normal global left ventricular contractility. 5. The right ventricle is normal in size and function. 6. The left atrium is normal in size. 7. The right atrium is normal in size. 8. Eustachian valve seen in the right atrium (normal finding). 9. Interatrial and interventricular septum intact. 10. The aortic valve is trileaflet and appears structurally normal. 11. There is mild aortic valve sclerosis. 12. The mitral valve is normal. 13. The tricuspid valve appears structurally normal. 14. Mild tricuspid regurgitation present. 15. There is mild to moderate pulmonary hypertension. 16. Pulmonic valve appears structurally normal. 17. The aortic root, ascending aorta and aortic arch are normal. 18. The pericardium is normal. CLINICAL DOCUMENT IMPROVEMENT EDUCATOR: Adrian Steele RDCS
== END 2019-12-08 15:13 | disposition home or self-care (01) | DRG 326 ==
LOC: 4SSUR 16:39
PROVIDERS: ADMIT Surgery; ATTEND Surgery
PROC: 30233N1 Transfusion of Nonautologous Red Blood Cells into Peripheral Vein, Percutaneous Approach (ICD-10-PCS; 2019-12-07)
PROC: 0DP64CZ Removal of Extraluminal Device from Stomach, Percutaneous Endoscopic Approach (ICD-10-PCS; principal; 2019-12-07 13:30)
DX: K95.09 Other complications of gastric band procedure (principal); J69.0 Pneumonitis due to inhalation of food and vomit; K31.1 Adult hypertrophic pyloric stenosis; I48.19 Other persistent atrial fibrillation; R64 Cachexia; E87.1 Hypo-osmolality and hyponatremia; J45.901 Unspecified asthma with (acute) exacerbation; D50.9 Iron deficiency anemia, unspecified; E78.5 Hyperlipidemia, unspecified; G89.29 Other chronic pain; I25.10 Atherosclerotic heart disease of native coronary artery without angina pectoris; J44.9 Chronic obstructive pulmonary disease, unspecified; I11.9 Hypertensive heart disease without heart failure; K22.2 Esophageal obstruction; K44.9 Diaphragmatic hernia without obstruction or gangrene; Y83.1 Surgical operation with implant of artificial internal device as the cause of abnormal reaction of the patient, or of later complication, without mention of misadventure at the time of the procedure; K21.9 Gastro-esophageal reflux disease without esophagitis; Z79.01 Long term (current) use of anticoagulants; Z98.84 Bariatric surgery status; Z95.5 Presence of coronary angioplasty implant and graft; Z87.891 Personal history of nicotine dependence; Z79.899 Other long term (current) drug therapy; Z79.02 Long term (current) use of antithrombotics/antiplatelets; Z90.49 Acquired absence of other specified parts of digestive tract; Z98.890 Other specified postprocedural states; Z98.42 Cataract extraction status, left eye; Z98.41 Cataract extraction status, right eye; Z68.23 Body mass index [BMI] 23.0-23.9, adult
CPT/HCPCS: 71046; 74240; 80053; 82728; 83540; 83550; 83735; 84100; 85025; 85027; 86850; 86900; 86901; 86920; 87070; 87205; 93005; 93306; 94640; 94760

== ENCOUNTER → 2019-12-04 | Outpatient (CLI) | payer MEDICARE ==
[2019-12-04 14:36] VITALS: BP 120/85; PULSE 99; RESP 16; TEMP 97.5; BMI 23.0
--- NOTE | 2019-12-04 15:44 | P.HPBAR ---
Bariatric H&P - History & Physicial H&P Date: 12/04/19 History & Physicial: Visit/CC: Band f/u trans of care Patient initial contact: Initial weight: 77.111 kg Initial weight in pounds: 170.00 Height: 6 ft Initial BMI: 23.0 Last weight: Current weight: 77.111 kg Current weight in pounds: 170.00 Current BMI: 23.0 [place] body weight (based on NIH guidelines): 80.739 kg Excess body weight loss: 0.0% The patient is a 69 year-old M who presents for Bariatric Assessment. Patient presents today after poor follow-up. Patient had a lap band placed he believes in 2006. He believes there is very little fluid in the band stating that it was somewhat tight from the early onset. Over the last 6 months per the patient has had episodes of worsening reflux and vomiting however the patient's family states it's been much longer than that. Over the last 1-2 weeks the patient had increasing difficulty with liquids. Mild upper abdominal pain at times. No recent workup. No previous upper endoscopy or barium swallow. He believes his COPD is worsened lately. Describes reflux particularly when lying down. He is on Xarelto for stents that were placed one year ago. Patient's weight prior to band placement 309 currently 170. Review of Systems The patient denies any acute changes in vision or hearing, no dysuria or hematuria, no headache, no runny nose, no rectal bleeding or melena, no unexplained weight loss Past Medical History Past Medical History: Atrial Fibrillation, Asthma, Chest Pain / Angina, COPD, GERD/Reflux, Hyperlipidemia, Hypertension History of Any Multi-Drug Resistant Organisms: None Reported Past Surgical History: Appendectomy, Heart Catheterization, Orthopedic Surgery Additional Past Surgical History / Comment(s): Cardioversion x 3, bilateral cataracts, surgery on bilateral hands, feet and ankles for fx when younger. Past Anesthesia/Blood Transfusion Reactions: No Reported Reaction Past Psychological History: No Psychological Hx Reported Smoking Status: Former smoker Past Alcohol Use History: Rare Additional Past Alcohol Use History / Comment(s): Quit smoking 9 yrs ago, started smoking as a teen, < 1 PPD. Past Drug Use History: None Reported - Past Family History Mother Family Medical History: No Reported History Surgical - Exam Vital Signs Temp Pulse Resp BP 97.5 F L 99 16 120/85 12/04/19 14:31 12/04/19 14:31 12/04/19 14:31 12/04/19 14:31 Physical exam: General: Well-developed, well-nourished HEENT: Normocephalic, sclerae nonicteric Abdomen: Nontender, nondistended Extremities: No edema Neuro: Alert and oriented Bariatric Assessment & Plan (1) Dysphagia Narrative/Plan: 69-year-old male post-lap band placement with ongoing dysphagia. Patient appears somewhat malnourished and is unable to tolerate liquids at this time. The patient's band was accessed in the office only 0.4-0.5 mL of saline was able to be removed. Recommend inpatient evaluation. We'll plan on removing this LAP-BAND for medical necessity on a semiurgent basis. Will obtain esophagram after admission. Consult to hospitalist service and pulmonary for clearance. Hold Genoveva. Status: Acute Bariatric Checklist Checklist: Plan: Checklist: EGD: 1. Hiatal hernia: 2. H. Pylori: HgbA1c: Vitamin D: Smoking: Former smoker Primary care physician referral: DR. Silvestre Psychiatry clearance: Cardiology clearance: Sleep study: Diet journal: VTE risk score: VTE risk level: Rehab needs at discharge:
== END | disposition home or self-care (01) ==
LOC: BARWHC3 14:17
PROVIDERS: ATTEND Surgery
DX: Z46.51 Encounter for fitting and adjustment of gastric lap band (principal); K95.09 Other complications of gastric band procedure; R13.10 Dysphagia, unspecified; Z87.891 Personal history of nicotine dependence; Z98.84 Bariatric surgery status; Z90.49 Acquired absence of other specified parts of digestive tract
CPT/HCPCS: 99212

== ENCOUNTER → 2019-12-11 | Outpatient (CLI) | payer MEDICARE ==
[2019-12-11 14:47] VITALS: BP 141/84; PULSE 58; RESP 16; TEMP 98.5; BMI 25.0
--- NOTE | 2019-12-11 15:05 | P.BASOAP ---
Subjective Progress Note Date: 12/11/19 Principal diagnosis: Dysphagia Patient returns after removing his lap band during an inpatient admission last Tuesday. Since discharge states he has been doing much better and having no significant dysphagia at this time. Tolerating solid foods. No heartburn. Minimal abdominal pain. Does feel somewhat tired. Says he is having paresthesias and some weakness of the foot. Dorsiflexion at the foot he says is difficult however is improving over the last 2-3 days. He has not had labs since discharge. He has not followed up with his primary care physician since discharge. Complains of bilateral lower extremity edema extending up to the thighs and lower abdomen. No fevers. Using a cane to ambulate at this time. No history of previous neuropathy or vascular issues. Objective - Vital Signs Vital signs: Vital Signs Temp 98.5 F 12/11/19 14:44 Pulse 58 L 12/11/19 14:44 Resp 16 12/11/19 14:44 BP 141/84 12/11/19 14:44 Pulse Ox Intake & Output 12/10/19 12/11/19 12/11/19 18:59 06:59 18:59 Weight 83.915 kg - Exam Abdomen: Soft, nondistended, incision clean and dry Bilateral lower extremity with mild edema, some weakness with dorsiflexion left foot Assessment/Plan (1) Esophageal obstruction Narrative/Plan: Patient doing much better from a dysphasia standpoint after removing his lap band. His weakness at the foot is however concerning. States it is improving. He is not interested in physical therapy or neurology evaluation at this time. Discussed that it may be related to underlying neuropathy or possibly positioning in the lithotomy position intraoperatively. Patient is reluctant to follow-up with his primary care physician but has agreed to do so at this time. We'll check labs that would include vitamin B12 and vitamin D 1. Patient does require endoscopy at some point but is not ready to schedule that thus far because of his anemia. We'll plan follow-up recheck in 3-4 weeks. If dorsiflexion remains weak recommend physical therapy and neurology evaluation at that time. Plan: Date: 12/11/19 Initial Weight: 77.111 kg Initial BMI: 23.0 Current Weight: 83.915 kg Current BMI: 25.0 Type of Surgery: Total Volume in Band: Previous Volume: Volume Removed: Volume Added: Band Size:
[2019-12-11 16:05] LABS: Anisocytosis Moderate; HGB 9.5 gm/dL (13.0-17.5); Hypochromasia Marked; MCH 18.7 pg (25.0-35.0); MCHC 27.2 g/dL (31.0-37.0); MCV 68.6 fL (80.0-100.0); Mean Platelet Volume 7.9; Microcytosis Marked; Platelet Count 309 k/uL (150-450); Poikilocytosis Moderate; RBC 5.09 m/uL (4.30-5.90); RDW 20.4 % (11.5-15.5); WBC 9.9 k/uL (3.8-10.6)
[2019-12-11 19:47] LABS: African American GFR (CKD) 101.4 (60.0-200.0); Albumin 3.3 g/dL (3.80-4.90); Albumin/Globulin Ratio 1.5 (1.60-3.17); Anion Gap 7.4 mmol/L (4.00-12.00); BUN/Creat Ratio 17.78 Ratio (12.00-20.00); Calcium 8.5 mg/dL (8.7-10.3); Carbon Dioxide 32.6 mmol/L (21.6-31.8); Globulin 2.2 g/dL (1.6-3.3); Non-African American GFR(CKD) 87.5 (60.0-200.0); Potassium 4.4 mmol/L (3.5-5.5); Total Bilirubin 0.8 mg/dL (0.3-1.2); Total Protein 5.5 g/dL (6.2-8.2)
[2019-12-11 19:54] LABS: Folate, Serum 4.3 ng/mL
== END ==
LOC: BARWHC3 14:16
PROVIDERS: ATTEND Surgery
DX: K22.2 Esophageal obstruction (principal); E66.01 Morbid (severe) obesity due to excess calories; K90.89 Other intestinal malabsorption; E55.9 Vitamin D deficiency, unspecified; Z68.25 Body mass index [BMI] 25.0-25.9, adult
CPT/HCPCS: 84425; 80053; 82607; 82746; 83540; 85027; 36415; G0463; 99211